=== PATIENT | male | born 1945 | race Caucasian/White ===

== ENCOUNTER 2016-10-20 10:17 | Outpatient (RCR) | payer OTHER ==
--- OUTSIDE RECORDS SUMMARY | 2016-10-13 08:55 | XMS REPORT | Continuity of Care Document ---
Author Author [facility] Organization [facility] Address Unknown Phone Unavailable Care Team Providers Care Inflatable Buildings Laminator Name Role Phone Unverified, Unverified PCP Unavailable Source Comments Some departments are not documenting in the electronic medical record. If you do not see the information that you expected, contact Release of Information in the Health Information Management department at [phone] for further assistance in locating additional records.[facility] Active Allergies and Adverse Reactions Not on File Current Medications Not on file Active Problems Not on file Social History Tobacco Use Types Packs/Day Years Used Date Never Assessed Plan of Care Health Maintenance Due Date Last Done Comments Physical (Comprehensive) 1953 Exam Pertussis Vaccine 1957 Tetanus Vaccine 1963 Breast Cancer Screening 1986 Colorectal Cancer 1996 Screening Shingles Vaccine 2006 Osteoporosis Screening 2011 Prevnar/Pneumovax (#1) 2011 Influenza Vaccine 07/15/2016 Results from Last 3 Months Not on file
[2016-10-13 09:06] LABS: BASOPHILS % (AUTO) 0 % (0-10); EOSINOPHILS % (AUTO) 1 % (0-10); LYMPHOCYTES % (AUTO) 24 % (12-44); MEAN CORPUSCULAR HEMOGLOBIN 31 PG (25-34); MEAN CORPUSCULAR HGB CONC 33 G/DL (32-36); MEAN CORPUSCULAR VOLUME 93 FL (80-99); MEAN PLATELET VOLUME 11.7 FL (7.4-10.4); MONOCYTES # (AUTO) 0.5 X 10^3 (0.0-1.0); MONOCYTES % (AUTO) 11 % (0-12); NEUTROPHILS # (AUTO) 2.6 X 10^3 (1.8-7.8); NEUTROPHILS % (AUTO) 64 % (42-75); PLATELET COUNT 203 10^3/uL (130-400); RED BLOOD COUNT 4.13 10^6/uL (4.35-5.85); RED CELL DISTRIBUTION WIDTH 13.9 % (10.0-14.5)
[2016-10-13 09:08] LABS: PEP REPORT SEE PATH REPORT
[2016-10-13 09:30] LABS: ALANINE AMINOTRANSFERASE 18 U/L (0-55); ALBUMIN 4.4 G/DL (3.2-4.5); ANION GAP 8 MMOL/L (5-14); ASPARTATE AMINO TRANSFERASE 19 U/L (5-34); BILIRUBIN,TOTAL 0.6 MG/DL (0.1-1.0); BLOOD UREA NITROGEN 12 MG/DL (7-18); BUN/CREATININE RATIO 13; CALCIUM 9.1 MG/DL (8.5-10.1); CARBON DIOXIDE 26 MMOL/L (21-32); CHLORIDE 104 MMOL/L (98-107); CREATININE SERUM 0.89 MG/DL (0.60-1.30); GFR ESTIMATED > 60; GLUCOSE 96 MG/DL (70-105); LACTATE DEHYDROGENASE 117 U/L (125-220); POTASSIUM 3.9 MMOL/L (3.6-5.0); SODIUM 138 MMOL/L (135-145)
[2016-10-14 01:56] LABS: IMMUNOGLOBULIN IGA 119 mg/dL (71-263); IMMUNOGLOBULIN IGG 994 mg/dL (672-1680); LIGHT CHAIN KAPPA SERUM QUANT 20.96 mg/L (3.30-19.40); LIGHT CHAIN LAMBDA SERUM QUANT 24.17 mg/L (5.71-26.30)
[2016-10-14 06:32] LABS: IMMUNOGLOBULIN IGM 1092 mg/dL (47-209)
[2016-10-17 10:41] LABS: CLIN PATHOLOGY REPORT FOOTNOTE; URINE IMMUNOFIXATION W/ INTERP Complete
[2016-10-17 10:43] LABS: SERUM PROTEIN ELEC DETAIL L-16-0015142
[~2016-10-20 10:17] MED LIST: ASP81TEC PO; CYAN10007 PO; ERGO400C PO; FINA1TAB PO; GLUC-113 PO; HYDR1CAP2 PO; MULT-608 PO; OMEG1CAP51 PO; ROSU5TAB PO; [UNRECOGNIZED DRUG - REMARK]
== END 2017-01-11 | disposition home or self-care (01) ==
LOC: ONC 10:17
PROVIDERS: ATTEND Internal Medicine Hematology & Oncology
DX: D47.2 Monoclonal gammopathy (principal); Z79.899 Other long term (current) drug therapy
CPT/HCPCS: 36415; 80053; 82232; 82784; 83615; 83883; 84155; 84156; 84165; 85025; 85045; 86335; 99213

== ENCOUNTER 2017-05-20 08:22 | Outpatient (RCR) | payer BC, OTHER ==
[2017-02-21 09:06] LABS: BASOPHILS % (AUTO) 0 % (0-10); EOSINOPHILS % (AUTO) 1 % (0-10); LYMPHOCYTES % (AUTO) 25 % (12-44); MEAN CORPUSCULAR HEMOGLOBIN 31 PG (25-34); MEAN CORPUSCULAR HGB CONC 33 G/DL (32-36); MEAN CORPUSCULAR VOLUME 94 FL (80-99); MEAN PLATELET VOLUME 12.1 FL (7.4-10.4); MONOCYTES # (AUTO) 0.5 X 10^3 (0.0-1.0); MONOCYTES % (AUTO) 14 % (0-12); NEUTROPHILS # (AUTO) 2.4 X 10^3 (1.8-7.8); NEUTROPHILS % (AUTO) 60 % (42-75); PLATELET COUNT 182 10^3/uL (130-400); RED BLOOD COUNT 4.03 10^6/uL (4.35-5.85); RED CELL DISTRIBUTION WIDTH 14.1 % (10.0-14.5)
[2017-02-21 09:33] LABS: PEP REPORT SEE PATH REPORT
[2017-02-21 09:55] LABS: ALANINE AMINOTRANSFERASE 17 U/L (0-55); ALBUMIN 3.9 G/DL (3.2-4.5); ANION GAP 6 MMOL/L (5-14); ASPARTATE AMINO TRANSFERASE 18 U/L (5-34); BILIRUBIN,TOTAL 0.5 MG/DL (0.1-1.0); BLOOD UREA NITROGEN 17 MG/DL (7-18); BUN/CREATININE RATIO 17; CALCIUM 9.2 MG/DL (8.5-10.1); CARBON DIOXIDE 29 MMOL/L (21-32); CHLORIDE 106 MMOL/L (98-107); CREATININE SERUM 1.01 MG/DL (0.60-1.30); GFR ESTIMATED > 60; GLUCOSE 100 MG/DL (70-105); LACTATE DEHYDROGENASE 136 U/L (125-220); POTASSIUM 4.7 MMOL/L (3.6-5.0); SODIUM 141 MMOL/L (135-145); TOTAL PROTEIN 6.8 G/DL (6.4-8.2)
[2017-02-22 04:01] LABS: IMMUNOGLOBULIN IGA 115 mg/dL (71-263); IMMUNOGLOBULIN IGG 934 mg/dL (672-1680); LIGHT CHAIN KAPPA SERUM QUANT 22.22 mg/L (3.30-19.40); LIGHT CHAIN LAMBDA SERUM QUANT 25.07 mg/L (5.71-26.30)
[2017-02-22 07:31] LABS: IMMUNOGLOBULIN IGM 1006 mg/dL (47-209)
[2017-02-24 06:59] LABS: CLIN PATHOLOGY REPORT FOOTNOTE; SERUM PROTEIN ELEC DETAIL L-17-0004696
[2017-05-18 09:21] LABS: BASOPHILS % (AUTO) 0 % (0-10); EOSINOPHILS # (AUTO) 0.1 10^3/uL (0.0-0.3); EOSINOPHILS % (AUTO) 1 % (0-10); LYMPHOCYTES # (AUTO) 1.1 X 10^3 (1.0-4.0); LYMPHOCYTES % (AUTO) 23 % (12-44); MEAN CORPUSCULAR HGB CONC 33 G/DL (32-36); MEAN CORPUSCULAR VOLUME 92 FL (80-99); MEAN PLATELET VOLUME 11.4 FL (7.4-10.4); MONOCYTES # (AUTO) 0.6 X 10^3 (0.0-1.0); MONOCYTES % (AUTO) 14 % (0-12); NEUTROPHILS # (AUTO) 2.9 X 10^3 (1.8-7.8); NEUTROPHILS % (AUTO) 62 % (42-75); PLATELET COUNT 217 10^3/uL (130-400); WHITE BLOOD COUNT 4.7 10^3/uL (4.3-11.0)
[2017-05-18 09:25] LABS: PEP REPORT SEE PATH REPORT
[2017-05-18 09:31] LABS: MEAN CORPUSCULAR HEMOGLOBIN 30 PG (25-34)
[2017-05-18 09:48] LABS: ALANINE AMINOTRANSFERASE 20 U/L (0-55); ALBUMIN 4.2 GM/DL (3.2-4.5); ANION GAP 7 MMOL/L (5-14); ASPARTATE AMINO TRANSFERASE 19 U/L (5-34); BILIRUBIN,TOTAL 0.7 MG/DL (0.1-1.0); BLOOD UREA NITROGEN 14 MG/DL (7-18); BUN/CREATININE RATIO 16; CALCIUM 9.6 MG/DL (8.5-10.1); CARBON DIOXIDE 28 MMOL/L (21-32); CHLORIDE 104 MMOL/L (98-107); CREATININE SERUM 0.89 MG/DL (0.60-1.30); GFR ESTIMATED > 60; GLUCOSE 99 MG/DL (70-105); POTASSIUM 4.6 MMOL/L (3.6-5.0); SODIUM 139 MMOL/L (135-145); TOTAL PROTEIN 7.4 GM/DL (6.4-8.2)
[2017-05-18 10:11] LABS: LACTATE DEHYDROGENASE 118 U/L (125-220)
[2017-05-19 03:28] LABS: IMMUNOGLOBULIN IGA 113 mg/dL (71-263); IMMUNOGLOBULIN IGG 958 mg/dL (672-1680)
[2017-05-19 07:32] LABS: IMMUNOGLOBULIN IGM 1038 mg/dL (47-209)
[2017-05-20 09:44] LABS: CLIN PATHOLOGY REPORT FOOTNOTE; SERUM PROTEIN ELEC DETAIL L-17-0008665
== END 2017-05-22 | disposition home or self-care (01) ==
LOC: ONC 08:22
PROVIDERS: ATTEND Internal Medicine Hematology & Oncology
DX: D47.2 Monoclonal gammopathy (principal); Z79.899 Other long term (current) drug therapy
CPT/HCPCS: 36415; 80053; 82784; 83615; 83883; 84155; 84156; 84165; 85025; 86335; 99213

== ENCOUNTER 2017-06-09 09:26 | Outpatient (RCR) | payer BC | END 2017-08-13 | disposition home or self-care (01) | LOC: EEVIPCON 09:26 → ONC 09:26 | PROVIDERS: ATTEND Internal Medicine Hematology & Oncology | DX: D47.2 Monoclonal gammopathy (principal); Z79.899 Other long term (current) drug therapy | CPT/HCPCS: 99213 ==

== ENCOUNTER 2017-10-19 08:35 | Outpatient (RCR) | payer BC ==
[2017-10-19 09:00] LABS: PEP REPORT SEE PATH REPORT
[2017-10-19 09:01] LABS: BASOPHILS % (AUTO) 0 % (0-10); EOSINOPHILS % (AUTO) 1 % (0-10); LYMPHOCYTES % (AUTO) 18 % (12-44); MEAN CORPUSCULAR HEMOGLOBIN 31 PG (25-34); MEAN CORPUSCULAR HGB CONC 33 G/DL (32-36); MEAN CORPUSCULAR VOLUME 93 FL (80-99); MEAN PLATELET VOLUME 11.7 FL (7.4-10.4); MONOCYTES # (AUTO) 0.6 X 10^3 (0.0-1.0); MONOCYTES % (AUTO) 11 % (0-12); NEUTROPHILS # (AUTO) 3.8 X 10^3 (1.8-7.8); NEUTROPHILS % (AUTO) 71 % (42-75); PLATELET COUNT 207 10^3/uL (130-400); RED BLOOD COUNT 4.19 10^6/uL (4.35-5.85); RED CELL DISTRIBUTION WIDTH 14.3 % (10.0-14.5); WHITE BLOOD COUNT 5.3 10^3/uL (4.3-11.0)
[2017-10-19 09:27] LABS: ALANINE AMINOTRANSFERASE 20 U/L (0-55); ALBUMIN 4.1 GM/DL (3.2-4.5); ANION GAP 5 MMOL/L (5-14); ASPARTATE AMINO TRANSFERASE 25 U/L (5-34); BILIRUBIN,TOTAL 0.7 MG/DL (0.1-1.0); BLOOD UREA NITROGEN 15 MG/DL (7-18); BUN/CREATININE RATIO 16; CALCIUM 9.4 MG/DL (8.5-10.1); CARBON DIOXIDE 31 MMOL/L (21-32); CHLORIDE 104 MMOL/L (98-107); CREATININE SERUM 0.92 MG/DL (0.60-1.30); GFR ESTIMATED > 60; GLUCOSE 99 MG/DL (70-105); LACTATE DEHYDROGENASE 131 U/L (125-220); POTASSIUM 4.5 MMOL/L (3.6-5.0); SODIUM 140 MMOL/L (135-145); TOTAL PROTEIN 7.5 GM/DL (6.4-8.2)
[2017-10-20 03:58] LABS: LIGHT CHAIN KAPPA SERUM QUANT 18.83 mg/L (3.30-19.40); LIGHT CHAIN LAMBDA SERUM QUANT 27.76 mg/L (5.71-26.30)
[2017-10-20 06:31] LABS: IMMUNOGLOBULIN IGA 123 mg/dL (71-263); IMMUNOGLOBULIN IGG 934 mg/dL (672-1680)
[2017-10-20 07:52] LABS: IMMUNOGLOBULIN IGM 996 mg/dL (47-209)
== END 2017-11-03 09:11 | disposition home or self-care (01) ==
LOC: ONC 08:35
PROVIDERS: ATTEND Internal Medicine Hematology & Oncology
DX: D47.2 Monoclonal gammopathy (principal); Z79.899 Other long term (current) drug therapy
CPT/HCPCS: 36415; 80053; 82784; 83615; 83883; 84155; 84165; 85025

== ENCOUNTER 2017-11-03 09:13 | Outpatient (RCR) | payer BC ==
[2018-01-27] MEDS ORDERED: ROSU5TAB PO (12:56)
[2018-01-27] MEDS ORDERED: MULT-35 PO (12:56)
[2018-01-27] MEDS ORDERED: FINA1TAB16 PO (12:56)
[2018-01-27] MEDS ORDERED: ASPI-999 PO (12:56)
[2018-01-27] MEDS ORDERED: CYAN10006 PO (12:56)
== END 2018-02-01 | disposition home or self-care (01) ==
LOC: ONC 09:13
PROVIDERS: ATTEND Internal Medicine Hematology & Oncology
DX: D47.2 Monoclonal gammopathy (principal); Z79.899 Other long term (current) drug therapy
CPT/HCPCS: 99213

== ENCOUNTER 2018-01-27 05:40 | Outpatient (CLI) | payer BC ==
[~2018-01-27] VITALS: Ht 177.8 cm; Wt 68.5 kg
[2018-01-27] MEDS ORDERED: ROSU5TAB PO (12:56)
[2018-01-27] MEDS ORDERED: CYAN10006 PO (12:56)
[2018-01-27] MEDS ORDERED: FINA1TAB16 PO (12:56)
[2018-01-27] MEDS ORDERED: ASPI-999 PO (12:56)
[2018-01-27] MEDS ORDERED: MULT-35 PO (12:56)
== END 2018-01-27 13:03 ==
LOC: PREOP 05:40
PROVIDERS: ATTEND Internal Medicine
DX: Z01.818 Encounter for other preprocedural examination (principal); Z12.11 Encounter for screening for malignant neoplasm of colon

== ENCOUNTER 2018-02-03 07:37 | Day surgery (SDC) | payer BC ==
--- NOTE | 2018-01-17 06:09 | HISTORY AND PHYSICAL ---
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 He rescheduled this procedure out of a 1 month interval on the 03 of February. This is an addendum H and P. He reports that there have been no changes. He continues to exercise on a regular basis and feels well. Pt was seen on 01/09/18. PHYSICAL EXAMINATION: VITAL SIGNS: Blood pressure was 104/76, heart rate 72 and regular. CHEST: Clear. CARDIOVASCULAR: Reveals regular rate and rhythm without murmur, S3 or S4. EXTREMITIES: Reveal no cyanosis, clubbing or edema. ASSESSMENT: The patient is set up for screening colonoscopy on 02/03, deemed to be of average risk with no contraindications to proceeding with planned procedure. Job ID: [id number] DocumentID: [id number] Dictated Date: 01/10/2018 11:41:30 Medical Billing Manager Date: 01/10/2018 12:23:44 Dictated By: NGHIA VARGAS MD MTDD
[~2018-02-03] VITALS: Ht 177.8 cm; Wt 68.5 kg
[~2018-02-03 07:37] MED LIST changes: +ASPI-999 PO; +CYAN10006 PO; +FINA1TAB16 PO; +MULT-35 PO
[2018-02-03 07:50] VITALS: BP 124/84
[2018-02-03] MEDS ORDERED: 1/2 NS IV SOLUTION 1,000 ML IV ONE (08:05)
[2018-02-03] MEDS ORDERED: 1/2 NS IV SOLUTION 1,000 ML IV PRN (08:15)
[2018-02-03] MEDS ORDERED: MIDAZOLAM 2 MG/2 ML (VERSED) VIAL IVP PRN (08:15)
[2018-02-03] MEDS ORDERED: LIDOCAINE JELLY 2% (XYLOCAINE) 5 ML TUBE MM PRN (08:15)
[2018-02-03] MEDS ORDERED: fentaNYL INJECTION 100 MCG/2 ML AMP ONE ×2 (08:53→08:54)
[2018-02-03] MEDS ORDERED: LIDOCAINE JELLY 2% (XYLOCAINE) 5 ML TUBE ONE (08:53)
[2018-02-03] MEDS ORDERED: MIDAZOLAM 2 MG/2 ML (VERSED) VIAL ONE (08:59)
[2018-02-03] MEDS: fentaNYL INJECTION 100 MCG/2 ML AMP IVP PRN ×2 (09:00→09:10)
--- NOTE | 2018-02-03 10:12 | Pre-Op Note & Conscious Sedat ---
Pre-Operative Progress Note H&P Reviewed The H&P was reviewed, patient examined and no changes noted. Date H&P Reviewed: Feb 03, 2018 Time H&P Reviewed: 07:55 Conscious Sedation Pre-Proced ASA Class: 2 Airway Mallampati Classification: ([place] appropriate class) I. II. III, IV Lungs Heart ASA score ASA 1: a normal healthy patient ASA 2: a patient with a mild systemic disease (mid diabetes, controlled hypertension, obesity ASA 3: a patient with a severe systemic disease that limits activity (angina , COPD, prior Myocardial infarction) ASA 4: a patient with an incapacitating disease that is a constant threat to life (CHF, renal failure) ASA 5: a moribund patient not expected to survive 24 hrs. (ruptured aneurysm) ASA 6: a declared brain patient whose organs are being harvested. For emergent operations, add the letter E after the classification Grade 2 Sedation Plan: Analgesia, Amnesia, Plan communicated to team members, Discussed options with patient/fam, Discussed risks with patient/fam Note The patient is an appropriate candidate to undergo the planned procedure, sedation, and anesthesia. The patient immediately re-assessed prior to indication. NGHIA VARGAS MD Feb 03, 2018 10:12
[2018-02-03 10:20] VITALS: BP 148/72
[2018-02-03 10:38] VITALS: BP 142/75
[2018-02-03 10:40] VITALS: BP 142/75
--- NOTE | 2018-02-03 15:24 | OPERATIVE REPORT ---
DATE OF SERVICE: COLONOSCOPY SUMMARY PRIMARY CARE PROVIDER: Nghia Vargas MD. The patient was set up for screening colonoscopy. The patient was placed in the left lateral decubitus position. Prior to doing colonoscopy, digital rectal evaluation was performed. Anal sphincter tone was normal and the perianal reflex was intact. The prostate is mildly enlarged, anodular and nontender digital inspection. No other abnormalities were noted on digital inspection of the anal canal or distal rectal vault. The colonoscope was then inserted into the rectum under direct visualization and then advanced to the cecum. The cecum was identified by identification of the ileocecal valve and cecal strap. Photographic documentation was obtained. A careful inspection was made as the colonoscope was withdrawn. FINDINGS: There is no evidence for internal or external hemorrhoids. The rectum was unremarkable. Present in the rectosigmoid junction was a diminutive hyperplastic appearing polyp that was photographed and biopsied and ablated with no subsequent blood loss. Similar polyps were noted in the distal sigmoid colon 20 cm from the anal verge and splenic flexure. Both were removed via hot forceps with cauterization and no subsequent blood loss. No evidence for diverticular disease was noted. The transverse colon, hepatic flexure, ascending colon and cecum were unremarkable as was the ileocecal valve. ASSESSMENT: Three diminutive polyps were removed as noted above via hot forceps with no subsequent blood loss. This was an otherwise normal colonoscopy to the cecum. As long as there are no surprises on histopathology report, I would advocate consideration for repeat screening colonoscopy in 10 years pending health status at that time. Digital evaluation of the prostate was compatible with mild benign hypertrophy. Job ID: [id number] DocumentID: [id number] Dictated Date: 02/03/2018 10:25:12 Belt Back Operator Date: 02/03/2018 14:27:02 Dictated By: NGHIA VARGAS MD [facility]
== END 2018-02-03 10:42 | disposition home or self-care (01) ==
LOC: ENDO 07:37
PROVIDERS: ATTEND Internal Medicine
DX: Z12.11 Encounter for screening for malignant neoplasm of colon (principal); D12.3 Benign neoplasm of transverse colon; D12.5 Benign neoplasm of sigmoid colon; D12.7 Benign neoplasm of rectosigmoid junction; D47.2 Monoclonal gammopathy; E78.5 Hyperlipidemia, unspecified

== ENCOUNTER 2018-05-04 09:40 | Outpatient (RCR) | payer BC ==
[2018-04-19 09:57] LABS: BASOPHILS % (AUTO) 0 % (0-10); EOSINOPHILS % (AUTO) 1 % (0-10); HEMATOCRIT 38 % (40-54); HEMOGLOBIN 12.9 G/DL (13.3-17.7); LYMPHOCYTES % (AUTO) 22 % (12-44); MEAN CORPUSCULAR HEMOGLOBIN 32 PG (25-34); MEAN CORPUSCULAR HGB CONC 34 G/DL (32-36); MEAN CORPUSCULAR VOLUME 92 FL (80-99); MONOCYTES # (AUTO) 0.6 X 10^3 (0.0-1.0); MONOCYTES % (AUTO) 12 % (0-12); NEUTROPHILS # (AUTO) 3.2 X 10^3 (1.8-7.8); NEUTROPHILS % (AUTO) 65 % (42-75); PLATELET COUNT 188 10^3/uL (130-400); RED BLOOD COUNT 4.09 10^6/uL (4.35-5.85); RED CELL DISTRIBUTION WIDTH 14.2 % (10.0-14.5); WHITE BLOOD COUNT 4.8 10^3/uL (4.3-11.0)
[2018-04-19 10:18] LABS: ALANINE AMINOTRANSFERASE 20 U/L (0-55); ALBUMIN 4.1 GM/DL (3.2-4.5); ALKALINE PHOSPHATASE 40 U/L (40-136); BILIRUBIN,TOTAL 0.7 MG/DL (0.1-1.0); BUN/CREATININE RATIO 21; CALCIUM 9.4 MG/DL (8.5-10.1); CARBON DIOXIDE 27 MMOL/L (21-32); CHLORIDE 106 MMOL/L (98-107); CREATININE SERUM 0.85 MG/DL (0.60-1.30); GFR ESTIMATED > 60; GLUCOSE 87 MG/DL (70-105); POTASSIUM 4.5 MMOL/L (3.6-5.0); SODIUM 139 MMOL/L (135-145); TOTAL PROTEIN 7.1 GM/DL (6.4-8.2)
== END 2018-07-18 | disposition home or self-care (01) ==
LOC: ONC 09:40
PROVIDERS: ATTEND Internal Medicine Hematology & Oncology
DX: D47.2 Monoclonal gammopathy (principal); Z79.899 Other long term (current) drug therapy
CPT/HCPCS: 36415; 80053; 82784; 83883; 84155; 84165; 85025; 99213

== ENCOUNTER → 2019-10-31 | Outpatient (CLI) | payer BC ==
[~2019-10-31] MED LIST changes: +CYAN-41 PO; -CYAN10006 PO
== END ==
LOC: CARD 14:50
PROVIDERS: ATTEND Internal Medicine
DX: I49.9 Cardiac arrhythmia, unspecified (principal)
CPT/HCPCS: 93005

== ENCOUNTER → 2019-11-22 | Outpatient (CLI) | payer BC ==
[~2019-11-22] MED LIST changes: +AMIO200T4 PO; +APIX5TAB PO; +CHOL200059 PO; +MULT1TAB69 PO
== END ==
LOC: CARD 13:02
PROVIDERS: ATTEND Internal Medicine
DX: I48.91 Unspecified atrial fibrillation (principal); I51.7 Cardiomegaly
CPT/HCPCS: 93306

== ENCOUNTER → 2019-12-05 | Outpatient (CLI) | payer BC ==
[2019-12-05] VITALS (8 sets, daily range): BP systolic 106–132; BP diastolic 62–97
[~2019-12-05] VITALS: Ht 178 cm; Wt 71.0 kg
[~2019-12-05] MED LIST changes: +ENOXAPARIN 100 MG/1 ML (LOVENOX) SYR ONE; +ENOXAPARIN 80 MG/0.8 ML (LOVENOX) SYR SC ONE; +LIDOCAINE 2% VISCOUS 15 ML UDC ONE; +LIDOCAINE 2% VISCOUS 15 ML UDC PO ONE; +MIDAZOLAM 5 MG/5 ML (VERSED) VIAL IV ONE; +MIDAZOLAM 5 MG/5 ML (VERSED) VIAL ONE; -MULT1TAB69 PO; +NS IV 1000 ML 1,000 ML IV ONE; +NS IV 1000 ML 1,000 ML ONE; +REGADENOSON 0.4 MG/5 ML SYR (LEXISCAN) IV ONE; +meTOprolol 5 MG/5 ML (LOPRESSOR) VIAL IV ONE; +meTOprolol 5 MG/5 ML (LOPRESSOR) VIAL ONE; +proPOfol 200 MG/20 ML (DIPRIVAN) VIAL IV ONE
[2019-12-05] MEDS: CATHETER FLUSH 10 ML SYR IV PRN ×2 (12:15→12:25)
[2019-12-05 15:02] LABS: HEMOGLOBIN 14.3 G/DL (13.3-17.7); MEAN PLATELET VOLUME 12.6 FL (7.4-10.4); RED CELL DISTRIBUTION WIDTH 14.3 % (10.0-14.5); WHITE BLOOD COUNT 5.7 10^3/uL (4.3-11.0)
[2019-12-05 15:07] LABS: INR 1.1 (0.8-1.4); PROTHROMBIN TIME PATIENT 14.7 SEC (12.2-14.7)
[2019-12-05 15:13] LABS: ALANINE AMINOTRANSFERASE 24 U/L (0-55); ALBUMIN 4.6 GM/DL (3.2-4.5); ALKALINE PHOSPHATASE 51 U/L (40-136); BILIRUBIN,TOTAL 0.7 MG/DL (0.1-1.0); BUN/CREATININE RATIO 12; CALCIUM 10.1 MG/DL (8.5-10.1); CARBON DIOXIDE 26 MMOL/L (21-32); CHLORIDE 103 MMOL/L (98-107); CHOLESTEROL 138 MG/DL (< 200); CREATININE SERUM 1.05 MG/DL (0.60-1.30); GFR ESTIMATED > 60; GLUCOSE 102 MG/DL (70-105); HDL CHOLESTEROL 61 MG/DL (40-60); SODIUM 140 MMOL/L (135-145); TOTAL PROTEIN 7.9 GM/DL (6.4-8.2); TRIGLYCERIDES 41 MG/DL (<150); VLDL CHOLESTEROL 8 MG/DL (5-40)
--- NOTE | 2019-12-05 16:13 | NUR ---
propofol given per anesthesia. see anesthesia record.
--- NOTE | 2019-12-05 16:16 | Cardiac Procedure Note-CS/ASA ---
Pre-Procedure Note Pre-Op Procedure Note H&P Reviewed The H&P was reviewed, patient examined and no changes noted. Date H&P Reviewed: Dec 05, 2019 Time H&P Reviewed: 15:00 Conscious Sedation Pre-Proced Time 15:00 ASA Score 2 For ASA 3 and 4: Consider anesthesia and medical clearance. Also, for patients with a history of failed moderate sedation consider anesthesia. Airway Lungs Heart ASA score ASA 1: a normal healthy patient ASA 2: a patient with a mild systemic disease (mid diabetes, controlled hypertension, obesity x ASA 3: a patient with a severe systemic disease that limits activity (angina, COPD, prior Myocardial infarction) ASA 4: a patient with an incapacitating disease that is a constant threat to life (CHF, renal failure) ASA 5: a moribund patient not expected to survive 24 hrs. (ruptured aneurysm) ASA 6: a declared brain- patient whose organs are being harvested. For emergent operations, add the letter E after the classification Mallampati Classification Grade 3 Sedation Plan Analgesia, Amnesia, Plan communicated to team members, Discussed options with patient/fam, Discussed risks with patient/fam The patient is an appropriate candidate to undergo the planned procedure, sedation, and anesthesia. The patient immediately re-assessed prior to indication. JASON FERRELL MD Dec 05, 2019 4:16 pm
--- NOTE | 2019-12-05 16:18 | Cardioversion ---
Cardioversion PROCEDURE PHYSICIAN: Jason Francois DATE OF PROCEDURE: 12/05/19 DIRECT EXTERNAL ELECTRICAL CARDIOVERSION: Indications: Atrial Fibrillation with rapid ventricular rate Preoperative diagnoses: Atrial Fibrillation with rapid ventricular rate Postoperative diagnosis: Sinus rhythm, Successful Electrical Cardioversion History: Anesthesia: By Anesthesia services Complications: None Specimen: None Contrast: 0 Flouroscopy: none Procedure Details: The patient was brought the factory laborer after informed consent was taken, all the risks and complications were explained including the risk of stroke. Electrical cardioversion was carried out with anesthesia support with propofol. 200 joules of synchronized shock was delivered through external patches which promptly restored sinus rhythm, patient return to atrial fibrillation within a few seconds, he was loaded with 5 mg of IV Lopressor and a second then a third attempt was done and was successful in terminating atrial fibrillation for a few seconds then he returned to atrial fibrillation. Conclusions: Electrical cardioversion was done, patient did not maintain sinus rhythm for a long time after the procedure, went back to atrial fibrillation within a few seconds Patient will be loaded with amiodarone and we will attempt electrical cardioversion without JANETTE next week Final Diagnosis: Atrial fibrillation Tachycardia JASON FRANCOIS MD Dec 05, 2019 4:18 pm
--- NOTE | 2019-12-05 19:36 | STRESS TEST ---
DATE OF SERVICE: 12/05/2019 EXERCISE THEN LEXISCAN MYOVIEW STRESS TEST REPORT REFERRING PHYSICIAN: Dr. Monroy. Baseline heart rate is 110. Baseline blood pressure 136/92. Baseline EKG is atrial fibrillation with no ischemic changes. In summary, the patient was injected with 10.57 mCi of technetium-99 Myoview and the resting images were obtained. Then, the patient started exercising with a baseline heart rate, blood pressure and EKG mentioned above. Within 2 minutes of exercise, heart rate was 146, which is 99% of maximum expected heart rate. Test was terminated and after recovery, I proceeded with Lexiscan injection of 0.4 mg, followed by 32.3 mCi of technetium-99 Myoview. The resting and stress images were reviewed and compared in the short axis, horizontal long axis, and vertical long axis views. Review of the images showed good radiotracer uptake with no ischemia or infarction on SPECT images. SSS is 1, SDS 1, TID value 1.08. On the gated images, the left ventricle appeared to be normal size with normal contractility. Calculated ejection fraction 52%. Baseline atrial fibrillation affecting the quality of the gated images. CONCLUSION: 1. Poor exercise tolerance, a total of 2 minutes on standard Moy protocol, achieving 99% of maximum expected heart rate. 2. Baseline atrial fibrillation persisted throughout test. 3. No significant ischemia or infarction on SPECT images. 4. The patient tolerated Lexiscan well. 5. Normal left ventricular size with normal contractility. Calculated ejection fraction 52%, gated images are unreliable due to underlying atrial fibrillation. Job ID: [id number] DocumentID: [id number] Dictated Date: 12/05/2019 15:15:40 Postal Support Employee Date: 12/05/2019 19:36:18 Dictated By: JASON FERRELL MD
--- NOTE | 2019-12-06 14:29 | Anesthesia-General Post-Op ---
MAC Patient Condition Mental Status/LOC: Same as Preop Cardiovascular: Satisfactory Nausea/Vomiting: Absent Respiratory: Satisfactory Pain: Controlled Complications: Absent Post Op Complications Complications None Follow Up Care/Instructions Patient Instructions None needed. Anesthesiology Discharge Order Discharge Order Late entry from 1600 12/05/18: Patient is doing well, no complaints, stable vital signs, no apparent adverse anesthesia problems. No complications reported per nursing. WES DYSON CRNA Dec 06, 2019 14:29
== END ==
LOC: CARD 12:07
PROVIDERS: ATTEND Internal Medicine Cardiovascular Disease
DX: I48.91 Unspecified atrial fibrillation (principal)
CPT/HCPCS: 36415; 78452; 80053; 80061; 85027; 85610; 85730; 92960; 93005; 93017; 93312; 93320; 93325

== ENCOUNTER 2019-12-12 06:46 | Day surgery (SDC) | payer BC ==
[2019-12-12] VITALS (9 sets, daily range): BP systolic 111–136; BP diastolic 71–96
[~2019-12-12] VITALS: Ht 177.8 cm; Wt 70.4 kg
[~2019-12-12 06:46] MED LIST changes: -ENOXAPARIN 100 MG/1 ML (LOVENOX) SYR ONE; -ENOXAPARIN 80 MG/0.8 ML (LOVENOX) SYR SC ONE; -LIDOCAINE 2% VISCOUS 15 ML UDC ONE; -LIDOCAINE 2% VISCOUS 15 ML UDC PO ONE; -MIDAZOLAM 5 MG/5 ML (VERSED) VIAL IV ONE; -MIDAZOLAM 5 MG/5 ML (VERSED) VIAL ONE; -NS IV 1000 ML 1,000 ML IV ONE; -NS IV 1000 ML 1,000 ML ONE; -REGADENOSON 0.4 MG/5 ML SYR (LEXISCAN) IV ONE; -meTOprolol 5 MG/5 ML (LOPRESSOR) VIAL IV ONE; -meTOprolol 5 MG/5 ML (LOPRESSOR) VIAL ONE; -proPOfol 200 MG/20 ML (DIPRIVAN) VIAL IV ONE
[2019-12-12] MEDS ORDERED: NS IV 1000 ML 1,000 ML IV ONE (07:10)
[2019-12-12] MEDS ORDERED: NS IV 1000 ML 1,000 ML IV SCH (07:11)
[2019-12-12] MEDS ORDERED: NS IV 1000 ML 1,000 ML ONE (07:16)
[2019-12-12 07:43] LABS: HEMOGLOBIN 13.4 G/DL (13.3-17.7); RED CELL DISTRIBUTION WIDTH 14.5 % (10.0-14.5); WHITE BLOOD COUNT 4.2 10^3/uL (4.3-11.0)
[2019-12-12] MEDS ORDERED: AMIODARONE (OMNICELL DRIP KIT) 150 MG/3 ML IV ONE (07:47)
[2019-12-12] MEDS ORDERED: proPOfol 200 MG/20 ML (DIPRIVAN) VIAL IV ONE (07:47)
[2019-12-12] MEDS ORDERED: MULT1TAB69 PO (07:53)
--- NOTE | 2019-12-12 07:56 | Diagnostic Imaging Report ---
EXAMINATION: Chest 1 view HISTORY: Atrial fibrillation COMPARISON: None available. FINDINGS: The lungs are clear without edema or pneumonia. No pleural effusion or pneumothorax. Heart size is normal. IMPRESSION: 1. Clear lungs. Dictated by: Dictated on workstation # [id number]
[2019-12-12] MEDS ORDERED: AMIO200T4 PO (07:59)
[2019-12-12] MEDS ORDERED: AMIODARONE FOR BOLUS 150 MG in D5W 100 ML IVPB 100 ML IV ONE (08:00)
[2019-12-12 08:06] LABS: INR 1.2 (0.8-1.4); PROTHROMBIN TIME PATIENT 15.3 SEC (12.2-14.7)
[2019-12-12 08:10] LABS: ALANINE AMINOTRANSFERASE 26 U/L (0-55); ALBUMIN 4.2 GM/DL (3.2-4.5); ALKALINE PHOSPHATASE 42 U/L (40-136); BILIRUBIN,TOTAL 0.6 MG/DL (0.1-1.0); BUN/CREATININE RATIO 15; CALCIUM 9.4 MG/DL (8.5-10.1); CARBON DIOXIDE 28 MMOL/L (21-32); CHLORIDE 104 MMOL/L (98-107); CHOLESTEROL 136 MG/DL (< 200); CREATININE SERUM 1.17 MG/DL (0.60-1.30); GFR ESTIMATED > 60; GLUCOSE 99 MG/DL (70-105); HDL CHOLESTEROL 59 MG/DL (40-60); POTASSIUM 4.4 MMOL/L (3.6-5.0); SODIUM 139 MMOL/L (135-145); TOTAL PROTEIN 7.2 GM/DL (6.4-8.2); TRIGLYCERIDES 38 MG/DL (<150); VLDL CHOLESTEROL 8 MG/DL (5-40)
--- NOTE | 2019-12-12 08:11 | Cardiac Procedure Note-CS/ASA ---
Pre-Procedure Note Pre-Op Procedure Note H&P Reviewed The H&P was reviewed, patient examined and no changes noted. Date H&P Reviewed: Dec 12, 2019 Time H&P Reviewed: 08:11 Conscious Sedation Pre-Proced Time 08:11 ASA Score 3 For ASA 3 and 4: Consider anesthesia and medical clearance. Also, for patients with a history of failed moderate sedation consider anesthesia. Airway Lungs Heart ASA score ASA 1: a normal healthy patient ASA 2: a patient with a mild systemic disease (mid diabetes, controlled hypertension, obesity x ASA 3: a patient with a severe systemic disease that limits activity (angina, COPD, prior Myocardial infarction) ASA 4: a patient with an incapacitating disease that is a constant threat to life (CHF, renal failure) ASA 5: a moribund patient not expected to survive 24 hrs. (ruptured aneurysm) ASA 6: a declared brain- patient whose organs are being harvested. For emergent operations, add the letter E after the classification Mallampati Classification Grade 3 Sedation Plan Analgesia, Amnesia, Plan communicated to team members, Discussed options with patient/fam, Discussed risks with patient/fam The patient is an appropriate candidate to undergo the planned procedure, sedation, and anesthesia. The patient immediately re-assessed prior to indication. JASON FERRELL MD Dec 12, 2019 08:11
--- NOTE | 2019-12-12 08:18 | Cardioversion ---
Cardioversion PROCEDURE PHYSICIAN: Jason Francois DATE OF PROCEDURE: 12/12/19 DIRECT EXTERNAL ELECTRICAL CARDIOVERSION: Indications: Atrial Fibrillation Preoperative diagnoses: Atrial Fibrillation Postoperative diagnosis: Sinus rhythm, Successful Electrical Cardioversion History: 74 years old gentleman with atrial fibrillation, failed to maintain sinus rhythm after JANETTE/ cardioversion last week, loaded with amiodarone and continued on Eliquis without interruption for a week, given additional IV dose of Amiodarone this morning Anesthesia: By Anesthesia services Complications: None Specimen: None Contrast: 0 Flouroscopy: none Procedure Details: The patient was brought the lab pack chemist after informed consent was taken, all the risks and complications were explained including the risk of stroke. Electrical cardioversion was carried out with anesthesia support with propofol. 200 joules of synchronized shock was delivered through external patches which promptly restored sinus rhythm. The patient tolerated the procedure well. Conclusions: Successful electrical cardioversion Final Diagnosis: Chronic persistent atrial fibrillation Chest pain JASON FRANCOIS MD Dec 12, 2019 08:18
--- NOTE | 2019-12-12 08:21 | Anesthesia-Procedure Note ---
Procedures/Interventions Procedure Start/Stop/Diagnosis Date of Procedure: Dec 12, 2019 Start Time: 08:08 Stop Time: 08:15 JANETTE/Cardioversion Anesthesia Type: mac ASA Class: 2 Medications propofol 50 mg iv Monitors and Equipment: BP Cuff - Left, Continuous EKG, End Tidal CO2, IV, Pulse Oximeter SHANTE VANN CRNA Dec 12, 2019 08:21
--- NOTE | 2019-12-12 09:20 | NUR ---
iv dc'd cath intact on removal, reviewed dc instructions with spouse present. has taken eliquis and amiodarone po as instructed. dc'd via wc
--- NOTE | 2019-12-12 09:30 | NUR ---
SPOKE WITH THE PT (HE WAS RECENTLY HERE IN THE [facility] ON 12-05-2019, HOWEVER I DID NOT INTERVIEW IN AT THAT TIME) AND CALLED [facility] TO COMPLETE THE MED REC. AMIODARONE 200MG: WHEN PT WAS SEEN ON 12-05 AN RX WAS SENT TO HIS PHARMACY WITH THE FOLLOWING DIRECTIONS " 2 TABS BID X 7 DAYS, THEN 1 TAB BID THEREAFTER". THE PT IS STILL ON THE FIRST WEEKS LOADING DOSE, SO THAT IS WHAT I DOCUMENTED IN THE MED REC WITH THE ABOVE DIRECTIONS LISTED IN THE RX NOTES. PT HAD MISSED SOME DOSES OF THE ABOVE MED AND WHEN I WAS IN THE HOLDING BAY WITH THE PT HE WAS DISCUSSING WITH DR. FERRELL ABOUT HOW HE SHOULD CONTINUE AFTER HIS PROCEDURE. THEREFORE THE DR IS AWARE OF THE MISSED THERAPY AND HAS ADVISED HIM ACCORDINGLY. THE FOLLOWING ARE FILL DATES: 11-16-2019 ROSUVASTATIN #30/30DS 11-26-2019 ELIQUIS #60/30DS 12-05-2019 AMIODARONE #74/30DS 12-06-2019 FINASTERIDE #90/90DS OTC MEDS: [facility]
== END 2019-12-12 09:25 | disposition home or self-care (01) ==
LOC: CATH 06:46
PROVIDERS: ATTEND Internal Medicine Cardiovascular Disease
DX: I48.19 Other persistent atrial fibrillation (principal); E78.5 Hyperlipidemia, unspecified; Z88.8 Allergy status to other drugs, medicaments and biological substances; Z79.02 Long term (current) use of antithrombotics/antiplatelets; Z79.899 Other long term (current) drug therapy; Z80.1 Family history of malignant neoplasm of trachea, bronchus and lung; Z83.3 Family history of diabetes mellitus
CPT/HCPCS: 36415; 71045; 80053; 80061; 85027; 85610; 85730; 87081; 92960; 93005

== ENCOUNTER 2020-06-02 10:55 | Outpatient (RCR) | payer BC ==
[2020-04-08 08:35] LABS: BASOPHILS % (AUTO) 0 % (0-10); EOSINOPHILS % (AUTO) 0 % (0-10); HEMATOCRIT 40 % (40-54); HEMOGLOBIN 13.3 G/DL (13.3-17.7); LYMPHOCYTES # (AUTO) 1.7 X 10^3 (1.0-4.0); LYMPHOCYTES % (AUTO) 17 % (12-44); MEAN CORPUSCULAR HEMOGLOBIN 31 PG (25-34); MEAN CORPUSCULAR HGB CONC 33 G/DL (32-36); MEAN CORPUSCULAR VOLUME 93 FL (80-99); MONOCYTES # (AUTO) 1.3 X 10^3 (0.0-1.0); MONOCYTES % (AUTO) 13 % (0-12); NEUTROPHILS # (AUTO) 6.8 X 10^3 (1.8-7.8); NEUTROPHILS % (AUTO) 70 % (42-75); PLATELET COUNT 222 10^3/uL (130-400); RED CELL DISTRIBUTION WIDTH 14.8 % (10.0-14.5); WHITE BLOOD COUNT 9.8 10^3/uL (4.3-11.0)
[2020-04-08 08:55] LABS: BILIRUBIN,TOTAL 0.7 MG/DL (0.1-1.0); CALCIUM 9.1 MG/DL (8.5-10.1); CREATININE SERUM 1.28 MG/DL (0.60-1.30); POTASSIUM 3.6 MMOL/L (3.6-5.0); TOTAL PROTEIN 7.2 GM/DL (6.4-8.2)
[~2020-06-02 10:55] MED LIST changes: +MULT-567 PO
== END 2020-07-07 | disposition home or self-care (01) ==
LOC: ONC 10:55
PROVIDERS: ATTEND Internal Medicine Hematology & Oncology
DX: D47.2 Monoclonal gammopathy (principal); Z79.899 Other long term (current) drug therapy
CPT/HCPCS: 80053; 82784; 83615; 83883; 84155; 84165; 85025; 99213

== ENCOUNTER → 2020-09-26 | Day surgery (SDC) | payer BC ==
[~2020-09-26] VITALS: Ht 177 cm; Wt 71.0 kg
[~2020-09-26] MED LIST changes: -AMIO200T4 PO; +AMIO200T6 PO; +LIDOCAINE 1% INJ 20 ML 20 ML VIAL INJ ONE; +LIDOCAINE 1% INJ 20 ML 20 ML VIAL ONE
[2020-09-26 08:26] VITALS: BP 116/69
--- NOTE | 2020-09-26 09:09 | Implantation of Loop Monitor ---
Implant of Loop Monitior IMPLANTATION OF LOOP MONITOR REPORT DATE OF PROCEDURE: 09/26/20 PREOP DIAGNOSIS: Paroxysmal atrial fibrillation PROCEDURE DETAILS: The patient is a 75 male with history of paroxysmal atrial fibrillation had ablation, has been having recurrent palpitation requiring long-term surveillance. Therefore implantable loop recorder was discussed and agreed with the patient. Informed consent was taken. All risks and complications were discussed at length. The patient was draped and prepped in the usual sterile fashion. Local anesthesia was lidocaine, which was given in the substernal area close to the 4th intercostal space. Loop monitor [employer] with serial number [id number] was implanted according to the protocol. Steri-Strips were placed at the end of the procedure. There were no complications and the patient tolerated the procedure well. ANESTHESIA: Local anesthesia with lidocaine. COMPLICATIONS: None CONTRAST/FLUOROSCOPY: None CONCLUSION: Successful implantation of Loop monitor with no complication FINAL DIAGNOSIS: Paroxysmal atrial fibrillation Palpitation JASON FERRELL MD Sep 26, 2020 9:09 am
== END ==
LOC: CATH 09:00
PROVIDERS: ATTEND Internal Medicine Cardiovascular Disease
DX: I48.0 Paroxysmal atrial fibrillation (principal); D47.2 Monoclonal gammopathy; I65.29 Occlusion and stenosis of unspecified carotid artery; Z79.01 Long term (current) use of anticoagulants; Z88.8 Allergy status to other drugs, medicaments and biological substances; Z80.1 Family history of malignant neoplasm of trachea, bronchus and lung; Z83.3 Family history of diabetes mellitus
CPT/HCPCS: 33285; C1764

== ENCOUNTER 2021-05-07 10:00 | Outpatient (RCR) | payer BC ==
[2021-04-21 09:11] LABS: BASOPHILS % (AUTO) 0 % (0-10); EOSINOPHILS # (AUTO) 0.1 10^3/uL (0.0-0.3); EOSINOPHILS % (AUTO) 1 % (0-10); HEMATOCRIT 40 % (40-54); LYMPHOCYTES % (AUTO) 20 % (12-44); MEAN CORPUSCULAR HEMOGLOBIN 30 pg (25-34); MEAN CORPUSCULAR HGB CONC 32 g/dL (32-36); MEAN CORPUSCULAR VOLUME 94 fL (80-99); MEAN PLATELET VOLUME 11.5 fL (9.0-12.2); MONOCYTES # (AUTO) 0.6 10^3/uL (0.0-1.0); MONOCYTES % (AUTO) 12 % (0-12); NEUTROPHILS # (AUTO) 3.3 10^3/uL (1.8-7.8); NEUTROPHILS % (AUTO) 67 % (42-75); PLATELET COUNT 221 10^3/uL (130-400); WHITE BLOOD COUNT 4.9 10^3/uL (4.3-11.0)
[2021-04-21 09:33] LABS: ALANINE AMINOTRANSFERASE 17 U/L (0-55); ALKALINE PHOSPHATASE 42 U/L (40-136); BILIRUBIN,TOTAL 0.4 MG/DL (0.1-1.0); BUN/CREATININE RATIO 14; CALCIUM 9.3 MG/DL (8.5-10.1); CARBON DIOXIDE 29 MMOL/L (21-32); CHLORIDE 103 MMOL/L (98-107); CREATININE SERUM 1.03 MG/DL (0.60-1.30); GFR ESTIMATED > 60; GLUCOSE 99 MG/DL (70-105); POTASSIUM 4.8 MMOL/L (3.6-5.0); SODIUM 138 MMOL/L (135-145); TOTAL PROTEIN 6.9 GM/DL (6.4-8.2)
[~2021-05-07 10:00] MED LIST changes: -LIDOCAINE 1% INJ 20 ML 20 ML VIAL INJ ONE; -LIDOCAINE 1% INJ 20 ML 20 ML VIAL ONE
[2021-07-08] MEDS ORDERED: CHOL-34 PO (12:22)
== END 2021-07-20 | disposition home or self-care (01) ==
LOC: ONC 10:00
PROVIDERS: ATTEND Internal Medicine Hematology & Oncology
DX: D47.2 Monoclonal gammopathy (principal); I48.0 Paroxysmal atrial fibrillation; Z79.899 Other long term (current) drug therapy
CPT/HCPCS: 80053; 82784; 83615; 83883; 84155; 84165; 85025; 99213

== ENCOUNTER → 2021-07-06 | Outpatient (CLI) | payer BC ==
[~2021-07-06] MED LIST changes: +CHOL-34 PO
--- NOTE | 2021-07-06 15:57 | Diagnostic Imaging Report ---
INDICATION: History of kidney stones. COMPARISON: CT dated 02/01/2012. FINDINGS: Single supine radiographic view of the abdomen was obtained. Small bowel loops are nondistended. There is large amount of air and stool scattered throughout the colon. This does obscure evaluation for renal or ureteral collecting system calculi. There does appear to be punctate extraosseous calcification projecting over the superior pole of the right kidney. Area in question measures approximately 2 mm. No unexpected radiopaque foreign bodies are seen. Osseous structures show no gross acute abnormalities. IMPRESSION: 1. Moderate colonic air and stool. Please correlate for constipation. 2. Exam is partially obscured by the amount of colonic air and stool, but there does appear to be potential small 2 mm right renal calculus. Dictated by: Dictated on workstation # [id number]
== END ==
LOC: RAD 15:40
PROVIDERS: ATTEND Urology
DX: Z87.442 Personal history of urinary calculi (principal)
CPT/HCPCS: 74018

== ENCOUNTER 2021-07-13 05:38 | Outpatient (RCR) | payer BC, MEDICARE ==
[2021-07-08 09:44] VITALS: BP 104/69
[2021-07-08 10:16] LABS: BASOPHILS % (AUTO) 0 % (0-10); EOSINOPHILS # (AUTO) 0.1 10^3/uL (0.0-0.3); EOSINOPHILS % (AUTO) 1 % (0-10); HEMATOCRIT 39 % (40-54); HEMOGLOBIN 12.7 g/dL (13.3-17.7); LYMPHOCYTES # (AUTO) 1.1 10^3/uL (1.0-4.0); LYMPHOCYTES % (AUTO) 20 % (12-44); MEAN CORPUSCULAR HEMOGLOBIN 30 pg (25-34); MEAN CORPUSCULAR HGB CONC 33 g/dL (32-36); MEAN CORPUSCULAR VOLUME 94 fL (80-99); MEAN PLATELET VOLUME 11.4 fL (9.0-12.2); MONOCYTES # (AUTO) 0.6 10^3/uL (0.0-1.0); MONOCYTES % (AUTO) 12 % (0-12); NEUTROPHILS # (AUTO) 3.5 10^3/uL (1.8-7.8); NEUTROPHILS % (AUTO) 67 % (42-75); PLATELET COUNT 213 10^3/uL (130-400); WHITE BLOOD COUNT 5.3 10^3/uL (4.3-11.0)
[2021-07-08 10:18] LABS: BILIRUBIN,URINE NEGATIVE (NEGATIVE); CLARITY,URINE CLEAR; COLOR,URINE YELLOW; GLUCOSE, URINE (UA) NEGATIVE (NEGATIVE); KETONES,URINE NEGATIVE (NEGATIVE); LEUKOCYTE ESTERASE ,URINE NEGATIVE (NEGATIVE); NITRITE,URINE NEGATIVE (NEGATIVE); PH,URINE 6.5 (5-9); PROTEIN,URINE NEGATIVE (NEGATIVE)
[2021-07-08 10:28] LABS: BACTERIA,URINE NEGATIVE /HPF
--- NOTE | 2021-07-08 10:32 | Diagnostic Imaging Report ---
INDICATION: Preop for knee arthroplasty. COMPARISON: None. FINDINGS: Frontal and lateral views of the chest demonstrate a loop recorder on the left; otherwise, the lungs are clear. The heart is normal. There is no pneumothorax or effusion. The osseous structures are normal. IMPRESSION: Negative chest. Dictated by: Dictated on workstation # [id number]
[2021-07-08 10:33] LABS: BILIRUBIN,TOTAL 0.5 MG/DL (0.1-1.0); CALCIUM 9.7 MG/DL (8.5-10.1); CREATININE SERUM 0.91 MG/DL (0.60-1.30); POTASSIUM 4.3 MMOL/L (3.6-5.0)
[2021-07-08 10:37] LABS: ERYTHROCYTE SEDIMENTATION RATE 18 MM/HR (0-30)
[~2021-07-13] VITALS: Ht 177.8 cm; Wt 70.5 kg
== END 2021-07-13 08:39 | disposition home or self-care (01) ==
LOC: PREOP 05:38
PROVIDERS: ATTEND Orthopaedic Surgery
DX: Z01.818 Encounter for other preprocedural examination (principal); M17.11 Unilateral primary osteoarthritis, right knee; R53.83 Other fatigue; Z11.2 Encounter for screening for other bacterial diseases; Z20.822 Contact with and (suspected) exposure to COVID-19
CPT/HCPCS: 36415; 71046; 80053; 81000; 85025; 85610; 85652; 86850; 86900; 86901; 87081; 87635; 93005

== ENCOUNTER 2021-07-15 06:00 | Inpatient (IN) | payer BC, MEDICARE ==
--- NOTE | 2021-07-09 06:01 | HISTORY AND PHYSICAL ---
DATE OF SERVICE: INPATIENT HISTORY AND PHYSICAL DATE OF ADMISSION: 07/15/2021. This will be for inpatient admission on 07/15/2021 for right total knee arthroplasty. The patient will require regular inpatient admission due to pain management, need for physical therapy and comorbidities. HISTORY OF PRESENT ILLNESS: The patient is a 76-year-old gentleman with longstanding progressive right knee pain. He previously underwent an open meniscectomy in 1969. He has had progressive worsening loss of function with associated swelling and pain in his knee. His radiographs reveal severe medial and patellofemoral arthrosis. Due to functional impairment and failure to improve with conservative measures, the patient elected to proceed with surgical intervention. REVIEW OF SYSTEMS: No chest pain, no shortness of breath, no dysuria. PAST MEDICAL HISTORY: Significant for atrial fibrillation, which is resolved with an ablation procedure, hyperlipidemia. PAST SURGICAL HISTORY: Right knee deviated septum, double herniorrhaphy, bilateral and coronary ablation. SOCIAL HISTORY: The patient does not use tobacco. He drinks alcohol socially. FAMILY HISTORY: Significant for ischemic heart disease and Parkinson's disease. PRIMARY CARE PROVIDER: Dr. Monroy. MEDICATIONS: Crestor, finasteride and aspirin. ALLERGIES: MIDAZOLAM. PHYSICAL EXAMINATION: GENERAL: The patient is well-developed, well-nourished, in no acute distress. HEENT: Normocephalic, atraumatic. Pupils are equal, round and reactive to light. Oropharynx is clear. NECK: Supple, with no lymphadenopathy. LUNGS: Clear to auscultation bilaterally. HEART: Regular rate and rhythm. ABDOMEN: Soft, nontender, nondistended. EXTREMITIES: Right knee demonstrates a moderate effusion. He is tender along his medial joint line. His range of motion 0/2/130. There is no varus valgus laxity. Trace anterior drawer, negative posterior drawer. IMPRESSION: Severe right knee osteoarthritis, unresponsive to conservative measures. PLAN: Right total knee arthroplasty. The risks, benefits, options, ramifications and recovery were discussed at length with the patient. He understands and wishes to proceed. Job ID: [id number] DocumentID: [id number] Dictated Date: 06/29/2021 15:42:35 Gas Blender Date: 06/29/2021 16:18:03 Dictated By: HOWIE CONN MD
[~2021-07-15] VITALS: Ht 177.8 cm; Wt 71.0 kg
[2021-07-15] VITALS (12 sets, daily range): BP systolic 115–144; BP diastolic 55–75
[2021-07-15] MEDS ORDERED: CEFUROXIME INJECTION 1,500 MG in WATER (STERILE) FOR INJECTION 15 ML IV ONE (06:15)
[2021-07-15] MEDS: LACTATED RINGERS 1,000 ML IV PRN ×2 (06:28→07:38)
[2021-07-15] MEDS ORDERED: proPOfol 200 MG/20 ML (DIPRIVAN) VIAL IV ONE (06:37)
[2021-07-15] MEDS ORDERED: fentaNYL INJ 100 MCG/2 ML AMP ONE ×3 (06:37→09:43)
[2021-07-15] MEDS ORDERED: LIDOCAINE PF 2% 5 ML (XYLOCAINE) VIAL ONE (06:37)
[2021-07-15] MEDS ORDERED: TRANEXAMIC ACID 100 MG/ML 10 ML INJECTION ONE (06:37)
[2021-07-15] MEDS ORDERED: MIDAZOLAM 2 MG/2 ML (VERSED) VIAL ONE (06:38)
[2021-07-15] MEDS ORDERED: BUPIVACAINE 0.5% 30 ML (SENSORCAINE) VIAL ONE (07:07)
[2021-07-15] MEDS ORDERED: NALOXONE 0.4 MG/ML 1 ML (NARCAN) VIAL IV PRN (07:30)
[2021-07-15] MEDS ORDERED: morphine PCA 100 MG/100 ML BAG IV PRN (07:30)
[2021-07-15] MEDS ORDERED: diphenhydrAMINE 50 MG/ML INJ (BENADRYL) IVP PRN (07:30)
[2021-07-15] MEDS ORDERED: ONDANSETRON 4 MG/2 ML (SDV) Z0FRAN IVP PRN ×2 (07:30→09:45)
--- NOTE | 2021-07-15 07:35 | Progress Note-Pre Operative ---
Pre-Operative Progress Note H&P Reviewed The H&P was reviewed, patient examined and no changes noted. Date Seen by Provider: Jul 15, 2021 Time Seen by Provider: 07:20 Date H&P Reviewed: Jul 15, 2021 Time H&P Reviewed: 07:11 Pre-Operative Diagnosis: right knee osteoarthritis HOWIE CONN MD Jul 15, 2021 07:35
--- NOTE | 2021-07-15 07:36 | Progress Note-Post Operative ---
Post-Operative Progess Note Surgeon (s)/Physician Interventional Cardiologist (s) Surgeon HOWIE CONN MD Physician Interventional Cardiologist: [place] Viveros Pre-Operative Diagnosis right knee primary osteoarthritis Post-Operative Diagnosis right knee primary osteoarthritis Procedure & Operative Findings Date of Procedure 07/15/21 Procedure Performed/Findings right total knee arthroplasty Anesthesia Type GETA Estimated Blood Loss Estimated blood loss (mL): minimal Specimens/Packing Specimens Removed none Packing: none HOWIE CONN MD Jul 15, 2021 07:36
--- NOTE | 2021-07-15 07:38 | D/C HH Face to Face Order ---
D/C Face to Face Orders Reconcile Patient Problems Problems Reviewed?: Yes Instructions for Patient Via [employer], Patient Instructions/FollowUp: three weeks Physician to follow Patient: three weeks Discharge Diet for Home: Regular Diet Patient Data-Allergies,Ht & Wt Patient Allergies: Coded Allergies: midazolam (Verified Allergy, Intermediate, SEDATED FOR 48HRS/LOW B/P, 07/15/21) Height (Feet): 5 Height (Inches): 10.00 Weight (Pounds): 151 Weight (Ounces): 0.0 Home Health Need/Face to Face Date of Face to Face: Jul 15, 2021 Clinical Findings: Muscle weakness, Pain with ambulation, Unsteady gait I have seen Pt [id number]: Yes Discharged To: Home Diagnosis/Conditions: right total knee arthroplasty Patient is Homebound due to: Cassi fall risk due to instabilty, Muscle weakness, Pain w/ambulation Homebound Status Due to the above stated illness, injury or surgical procedure (medical condition or diagnosis) and associated clinical findings, the patient is homebound because of his/her inability to leave home except with aid of a supportive device and/or person AND leaving the home requires a considerable and taxing effort or is medically contraindicated. Pt req the following assistanc: [facility] Nursing Orders Home Health Services Order: Physical Therapy-Evaluate & Treat DC right knee pilar and apply steri strips 07/29/21 Home Health Infusion Therapy Line Start Date: Jul 15, 2021 Therapy Orders Therapy Orders: Physical Therapy, PT to assess for OT Therapy Specific Orders: Eval assistive deivces, Teach enviro modificati ons/safety, Gait training, Increase strength/endurance, Provider maintenance therapy, Restore ROM Certify Stmt I certify that this patient is under my care and that I, a nurse practitioner or a physician; a pathologist assistant working with me, had a face to face encounter that - meets the physician face to face encounter requirements with this patient as dated. HOWIE CONN MD Jul 15, 2021 07:38
[2021-07-15] MEDS ORDERED: INTRA-ARTICULAR IU ONE ×5 (07:45)
[2021-07-15] MEDS ORDERED: ONDANSETRON 4 MG/2 ML (SDV) Z0FRAN ONE (08:46)
[2021-07-15] MEDS ORDERED: SEVOFLURANE (ULTANE) 15 ML INHAL SOLN ONE (09:20)
[2021-07-15] MEDS ORDERED: MEPERIDINE (DEMEROL) INJ 50 MG/ML ONE (09:35)
[2021-07-15] MEDS ORDERED: MEPERIDINE (DEMEROL) INJ 50 MG/ML IVP ONE (09:45)
[2021-07-15] MEDS ORDERED: fentaNYL INJ 100 MCG/2 ML AMP IVP ONE (09:45)
--- NOTE | 2021-07-15 09:57 | Diagnostic Imaging Report ---
INDICATION: Right knee surgery. TIME OF EXAM: 9:37 AM Two views of the right knee demonstrate postoperative changes of total knee arthroplasty. Prosthetic elements are in good position. No fracture or loosening is seen. There are overlying skin pilar. IMPRESSION: Satisfactory postoperative appearance to the right knee. Dictated by: Dictated on workstation # [id number]
[2021-07-15] MEDS ORDERED: NS IV 1000 ML 1,000 ML ONE (11:07)
[2021-07-15] MEDS ORDERED: morphine PCA 100 MG/100 ML BAG IV ONE (11:08)
[2021-07-15] MEDS: NS IV 1000 ML 1,000 ML IV SCH ×3 (11:17→23:30)
[2021-07-15] MEDS ORDERED: CATHETER FLUSH 10 ML SYR IV PRN (11:30)
[2021-07-15] MEDS: SENNA W/DOCUSATE (SENOKOT S) TABLET PO SCH ×2 (11:46→21:00)
--- NOTE | 2021-07-15 14:03 | OPERATIVE REPORT ---
DATE OF SERVICE: 07/15/2021 GPREOPERATIVE DIAGNOSIS: Right knee primary osteoarthritis. POSTOPERATIVE DIAGNOSIS: Right knee primary osteoarthritis. PROCEDURE: Right total knee arthroplasty. SURGEON: Tim Conn MD BOXING INSTRUCTOR: [place] Viveros, who assisted throughout the procedure and closed the incision. ANESTHESIA: General endotracheal by Claudia Buchanan CRNA. TOURNIQUET TIME: Approximately 75 minutes at 300 mmHg. ESTIMATED BLOOD LOSS: Minimal. DRAINS: None. COMPLICATIONS: None. POSTOPERATIVE PLAN: Routine protocol. The patient was transferred to the recovery room, awake and stable condition. MATERIALS: Microport cemented size 6 femur, cemented size 6 tibia with 10 mm insert and a 35 cemented patellar button. STATEMENT OF MEDICAL NECESSITY: The patient is a 76-year-old gentleman who had longstanding progressive right knee pain. Radiographs revealed severe medial and patellofemoral arthrosis. He had undergone treatment with injections, rest, activity modifications and physical therapy without relief. Due to functional impairment and failure to improve with conservative measures, the patient elected to proceed with surgical intervention. DESCRIPTION OF PROCEDURE: After risks and benefits of procedure were discussed and questions were answered, an informed consent was signed and placed on the chart. The operative site was confirmed in the preoperative holding area and the patient was transferred to the operating room. After adequate levels of general endotracheal anesthetic were obtained, a timeout was called, confirming the operative site. The right lower extremity was prepped and draped in the usual sterile fashion with the leg elevated and the knee flexed, tourniquet was inflated to 300 mmHg. Standard anterior approach was utilized. Hemostasis was obtained with cautery. Medial parapatellar arthrotomy was performed leaving 1 cm cuff on the patella for later reattachment. A portion of the fat pad was resected. A subperiosteal release was carefully performed on the proximal medial tibia being careful to stay on the bony surface. The ACL was absent. The intramedullary guide was passed into the femur. The distal cutting block was placed. Distal cut was made in the femur was sized to a size 6. The 6 cutting block was placed parallel to the epicondylar axis and cuts were made from posterior to anterior. The intramedullary guide was then passed into the tibia. The cutting block was placed. The drop deyanira transected the intermalleolar axis and the cut was made. The 6 baseplate was positioned and the drop deyanira again transected the intermalleolar axis. This was then prepared with the drill and keel punch. The femoral trial was placed and trochlear cut was made and the 10 mm trial was placed. The patella was then prepared by using the freehand technique and resecting 10 mm off the undersurface. PEG guide was placed, and peg holes were drilled at 35 trial button was placed. The knee was taken through range of motion. Full extension was easily obtained, 120 degrees of flexion was easily obtained. There was no anterior/posterior or medial/lateral laxity in flexion or extension. The patella tracked well. The trials were removed. The joint was irrigated with pulse lavage. Bone ends were irrigated and dried. The periarticular block was placed in the posterior capsule, medial and lateral retinaculum extensor mechanism, subcutaneous tissues. The bone ends were then further irrigated and dried, and the tibial baseplate was cemented into position. Excessive cement was removed, the superior surface was irrigated and dried and the polyethylene insert was placed. Distal femur was irrigated and dried and the femoral prosthesis was cemented into position. Excessive cement was removed. The knee was brought out into full extension until the cement had cured. The undersurface of patella was irrigated and dried. The patellar button was cemented into position. Excessive cement was removed. Once the cement had cured, the knee was taken through range of motion. Full extension was easily obtained 120 degrees of flexion with gravity was easily obtained. There was no anterior/posterior or medial/lateral laxity in flexion or extension. The joint was further irrigated. The arthrotomy was closed with #2 Tevdek in jkhqmy-an-blzpr interrupted fashion. Knee was flexed. The repair was stable, and the patella tracked well. Subcutaneous tissues were irrigated and dried using a total of 6 liters throughout the procedure. A 0 Vicryl was used for deep subcutaneous layer, 2-0 Vicryl for the superficial subcutaneous layer, pilar used on the skin. A soft dressing was applied. Tourniquet was deflated. The patient was transferred to the recovery room awake and in stable condition. Job ID: [id number] DocumentID: [id number] Dictated Date: 07/15/2021 09:36:08 Automotive Painter Helper Date: 07/15/2021 14:03:27 Dictated By: TIM CONN MD
--- NOTE | 2021-07-15 14:37 | Physical Therapy Evaluation ---
PT Evaluation-General Medical Diagnosis Admission Date Jul 15, 2021 at 06:00 Medical Diagnosis: Right TKA Onset Date: Jul 15, 2021 Therapy Diagnosis Therapy Diagnosis: Gait Deficit, strength deficit Height/Weight Height (Feet): 5 Height (Inches): 10.00 Weight (Pounds): 151 Weight (Ounces): 0.0 Precautions Precautions/Isolations: Fall Prevention Weight Bear Status Right Lower Extremity: Right Weight Bearing/Tolerated Referral Physician: Dr. Garza Reason for Referral: Evaluation/Treatment Social History Home: [facility] Current Living Status: Significant Other Entry Into Home: Stairs Without Railing PT Steps Into Home: 1 PT Steps Inside Home: 18 Prior Prior Level of Function SCALE: Activities may be completed with or without assistive devices. 0-Cvwvrlkcio-azgvwlq completes the activity by him/herself with no assistance from a helper. 5-Set-up or Clean-up Assistance-helper sets up or cleans up; patient completes activity. [place] assists only prior to or following the activity. 4-Supervision or Touching Assistance-helper provides verbal cues and/or touching/steadying and/or contact guard assistance as patient completes activity. Assistance may be provided throughout the activity or intermittently. 3-Partial/Moderate Assistance-helper does LESS THAN HALF the effort. [place] lifts, holds or supports trunk or limbs, but provides less than half the effort. 2-Substantial/Maximal Assistance-helper does MORE THAN HALF the effort. [place] lifts or holds trunk or limbs and provides more than half the effort. 1-Vyzlmyrlk-ircezy does ALL the effort. Patient does none of the effort to complete the activity. Or, the assistance of 2 or more helpers is required for the patient to complete the activity. If activity was not attempted, code reason: 7-Patient Refused. 9-Not Applicable-not attempted and the patient did not perform the activity before the current illness, exacerbation or injury. 10-Not Attempted due to Environmental Limitations-(lack of equipment, weather restraints, etc.). 88-Not Attempted due to Medical Conditions or Safety Concerns. Bed Mobility: 6 Transfers (B,C,W/C): 6 Gait: 6 Stairs: 6 Wheelchair Mobility: 9 Indoor Mobility (Ambulation): Independent Stairs: Independent Prior Devices Use: None PT Evaluation-Current Subjective Patient lying supine in bed upon PT arrival with in the room, agreeable to treatment. Patient currently rates pain at 3/10 and notes that when the CPM moves "It actually feels good." Objective Patient Orientation: Person, Place, Time, Situation Attachments: IV ROM/Strength ROM Lower Extremities Right knee extension AROM 10 degrees from neutral Right knee flexion AROM 90 degrees Strength Lower Extremities Right knee flexion and extension 3-/5 via visual observation. Sensory Sensation Right Lower Extremit: Intact Sensation Left Lower Extremity: Intact Transfers Roll Left to Right (QC): 4 Sit to Lying (QC): 4 Lying to Sitting/Side of Bed(Q: 4 Sit to Stand (QC): 4 Chair/Rat-ua-Xdgaw Xfer(QC): 4 Gait Does the Patient Walk?: Yes Mode of Locomotion: Walk Anticipated Mode of Locomotion: Walk Walk 10 feet (QC): 4 Walk 50 ft with 2 Turns(QC): 88 Distance: 15 ft Gait Assistive Device: FWW Wheelchair Training Does the Pt Use a Wheelchair?: No Balance Sitting Static: Good Sitting Dynamic: Good Standing Static: Fair Standing Dynamic: Fair Assessment/Needs Patient tolerated treatment well. Patient demonstrates knee ROM from 10 degrees from neutral in extension to 90 degrees flexion. Patient was fit with CPM and settings at 0-90 degrees with instructions to be on 2 hours, off 2 hours. Demonstrates SBA for all observed bed mobility and transfers. he performs bila teral LE therapeutic exercise as listed above. Patient ambulates 15 feet with FWW with SBA and verbal cues for gait, safety, progression and posture. Patient in chair post treatment with all needs met, nursing notified, call light in hand, and in the room. Rehab Potential: Good PT Short Term Goals Short Term Goals Time Frame: Jul 18, 2021 Roll Left & Right: 5 Sit to lyin Lying to sitting on side of be: 5 Sit to stand: 5 Chair/rvt-bu-wtmme transfer: 5 Toilet transfer: 5 Car transfer: 5 Walk 10 feet: 5 Walk 50 feet with two turns: 5 Walk 150 feet: 5 Walking 10ft on uneven surface: 5 1 step (curb): 5 4 steps: 5 PT Orthodontist Goals Detention Goals PT Orthodontist Goals Time Frame: Jul 24, 2021 Roll Left & Right (QC): 6 Sit to Lying (QC): 6 Lying-Sitting on Side/Bed(QC): 6 Sit to Stand (QC): 6 Chair/Ukn-ey-Qgynl Xfer(QC): 6 Toilet Transfer (QC): 6 Car Transfer (QC): 6 Does the Patient Walk: Yes Walk 10 feet (QC): 6 Walk 50ft with 2 Turns (QC): 6 Walk 150 ft (QC): 6 Walking 10ft on Uneven Surface: 6 1 Step (curb) (QC): 6 4 Steps (QC): 6 12 Steps (QC): 6 PT Plan Problem List Problem List: Activity Tolerance, Functional Strength, Safety, Balance, Gait, Transfer, Bed Mobility, ROM Treatment/Plan Treatment Plan: Continue Plan of Care Treatment Plan: Bed Mobility, Education, Functional Activity Mechelle, Functional Strength, Gait, Safety, Therapeutic Exercise, Transfers Treatment Duration: Sep 09, 2021 Frequency: 11 times per week Estimated Hrs Per Day: .5 hour per day Patient and/or Family Agrees t: Yes Safety Risks/Education Patient Education: Gait Training, Transfer Techniques, Reviewed Precautions Teaching Recipient: Patient, Family Teaching Methods: Demonstration, Discussion Response to Teaching: Verbalize Understanding, Return Demonstration Time/GCodes Time In: 1320 Time Out: 1400 Total Billed Treatment Time: 40 Total Billed Treatment Visit, Sarai Arenas, Ex, CPM ADRIEN RODRIGUEZ PT Jul 15, 2021 14:37
[2021-07-15] MEDS: CEFUROXIME INJECTION 750 MG in WATER (STERILE) FOR INJECTION 10 ML IV SCH ×2 (15:26→23:47)
--- NOTE | 2021-07-15 19:33 | Progress Note - Hospitalist ---
Subjective HPI/CC On Admission Date Seen by Provider: Jul 15, 2021 Time Seen by Provider: 11:45 Subjective/Events-last exam Godfrey Fischer is a 76 year old male with PMH AFib s/p ablation, BPH, HLD, osteoarthritis, who came in for a scheduled right total knee arthroplasty with Dr. Garza. He underwent the procedure today without issue. He is now in his room and resting comfortably. He denies any pain but says he also hasn't really moved from bed yet. He has been in his normal state of health. He has no other complaints or concerns. Objective Exam Vital Signs Vital Signs Date Time Temp Pulse Resp B/P (MAP) Pulse Ox O2 Delivery O2 Flow Rate FiO2 07/15/21 18:00 22 07/15/21 16:00 37.0 81 116/72 (87) 97 Room Air 07/15/21 10:00 3 Capillary Refill : Less Than 3 Seconds General Appearance: No Apparent Distress, WD/WN Respiratory: Lungs Clear, Normal Breath Sounds, No Respiratory Distress Cardiovascular: Regular Rate, Rhythm, No Edema, No Murmur Gastrointestinal: Normal Bowel Sounds, Non Tender, Soft Extremity: Non Tender, No Pedal Edema Neurologic/Psychiatric: Alert, Oriented x3, No Motor/Sensory Deficits, Normal Mood/Affect Skin: Normal Color, Warm/Dry Results/Procedures Lab Patient resulted labs reviewed. Imaging: Reviewed Imaging Report Assessment/Plan Assessment and Plan Assess & Plan/Chief Complaint Osteoarthritis s/p total knee arthroplasty Kayla primary Pain regimen Bowel regimen Incentive spirometry PT/OT HLD Continue home meds AFib No medications, clinically significant, no acute management needs DVT prophylaxis: Lovenox Diagnosis/Problems Diagnosis/Problems (1) S/P total knee arthroplasty Status: Acute Qualifiers: Laterality: right Qualified Codes: Z96.651 - Presence of right artificial knee joint (2) Osteoarthritis of right knee Status: Chronic (3) Atrial fibrillation Status: Chronic (4) HLD (hyperlipidemia) Status: Chronic RAMESH BECKFORD MD Jul 15, 2021 19:33
[2021-07-15] MEDS: ROSUVASTATIN 5 MG (CRESTOR) TABLET PO SCH (21:00)
[2021-07-16 04:00] VITALS: BP 116/59
[2021-07-16] MEDS: MULTIVIT W/MINERALS TAB (THERAGRAN M) PO SCH (05:45)
[2021-07-16 06:36] LABS: HEMOGLOBIN 10.7 g/dL (13.3-17.7)
--- NOTE | 2021-07-16 07:19 | Anesthesia-General Post-Op ---
General Patient Condition Mental Status/LOC: Same as Preop Cardiovascular: Satisfactory Nausea/Vomiting: Absent Respiratory: Satisfactory Pain: Controlled Complications: Absent Post Op Complications Complications None Follow Up Care/Instructions Patient Instructions None needed. Anesthesia/Patient Condition Patient Condition Patient is doing well, no complaints, stable vital signs. Awake and sitting up with CPM machine, reports no discomfort and that lower extremity block has worked well. No apparent adverse anesthesia problems. No complications reported per nursing. LISA WEN MARINE CONSULTANT Jul 16, 2021 07:19
[2021-07-16 07:46] VITALS: BP 115/54
[2021-07-16] MEDS: SENNA W/DOCUSATE (SENOKOT S) TABLET PO SCH ×2 (07:55→19:40)
[2021-07-16] MEDS: ENOXAPARIN 30 MG/0.3 ML (LOVENOX) SYR SC SCH ×2 (07:55→19:40)
[2021-07-16] MEDS: oxyCODONE/APAP 5/325MG (PERCOCET 5) TABLET PO PRN ×6 (07:55→21:34)
[2021-07-16] MEDS: ASPIRIN E.C. 81 MG (ECOTRIN) TAB PO SCH ×2 (07:55→09:34)
--- NOTE | 2021-07-16 08:02 | Progress Note ---
Standard Progress Note Progress Notes/Assess & Plan Date Seen by a Provider: Jul 16, 2021 Time Seen by a Provider: 08:01 Progress/Assessment & Plan no complaints Vital Signs Date Time Temp Pulse Resp B/P (MAP) Pulse Ox O2 Delivery O2 Flow Rate FiO2 07/16/21 07:46 36.7 75 16 115/54 (74) 95 Room Air 07/16/21 05:55 16 07/16/21 04:00 36.7 73 16 116/59 (78) 97 Room Air 07/15/21 23:06 36.8 79 18 115/55 (75) 96 Room Air 07/15/21 20:55 Room Air 07/15/21 20:00 37.1 78 20 117/64 (81) 96 Room Air 07/15/21 18:00 22 07/15/21 16:00 37.0 81 22 116/72 (87) 97 Room Air 07/15/21 15:53 18 07/15/21 11:12 36.1 83 18 123/58 (79) 95 Room Air 07/15/21 10:30 Room Air 07/15/21 10:30 Room Air 07/15/21 10:30 37.0 20 132/64 (86) 96 Room Air 07/15/21 10:20 20 134/68 (90) 96 Room Air 07/15/21 10:15 Room Air 07/15/21 10:10 20 124/61 (82) 96 Room Air 07/15/21 10:00 OxyMask 3 07/15/21 10:00 20 128/63 (84) 95 OxyMask 3 07/15/21 09:50 20 133/60 (84) 98 OxyMask 3 07/15/21 09:45 OxyMask 6 07/15/21 09:40 16 135/57 (83) 100 OxyMask 6 07/15/21 09:31 OxyMask 6 07/15/21 09:31 37.0 16 120/65 (83) 100 OxyMask 6 I & O 07/16/21 07:00 Intake Total 4475 ml Output Total 1975 ml Balance 2500 ml Laboratory Tests Test 07/16/21 05:50 Range/Units Hemoglobin 10.7 L 13.3-17.7 g/dL Hematocrit 34 L 40-54 % RLE--dressing intact. no calf tenderness. Neg Beverly's NVI s/p RTKA doing well PT/OT HOWIE CONN MD Jul 16, 2021 08:02
--- NOTE | 2021-07-16 09:49 | Physical Therapy Daily Note ---
PT Daily Note-Current Subjective Patient agrees to PT. Pain Numeric Pain Scale: 3 Location: Right Location Body Site: Knee Pain Description: Acute Mental Status Patient Orientation: Normal For Age Attachments: Polar Pack, IV Transfers SCALE: Activities may be completed with or without assistive devices. 8-Yjwvyjhrzu-lagdycx completes the activity by him/herself with no assistance from a helper. 5-Set-up or Clean-up Assistance-helper sets up or cleans up; patient completes activity. [place] assists only prior to or following the activity. 4-Supervision or Touching Assistance-helper provides verbal cues and/or touching/steadying and/or contact guard assistance as patient completes activity. Assistance may be provided throughout the activity or intermittently. 3-Partial/Moderate Assistance-helper does LESS THAN HALF the effort. [place] lifts, holds or supports trunk or limbs, but provides less than half the effort. 2-Substantial/Maximal Assistance-helper does MORE THAN HALF the effort. [place] lifts or holds trunk or limbs and provides more than half the effort. 3-Dolaqinrf-gnpjps does ALL the effort. Patient does none of the effort to c omplete the activity. Or, the assistance of 2 or more helpers is required for the patient to complete the activity. If activity was not attempted, code reason: 7-Patient Refused. 9-Not Applicable-not attempted and the patient did not perform the activity before the current illness, exacerbation or injury. 10-Not Attempted due to Environmental Limitations-(lack of equipment, weather restraints, etc.). 88-Not Attempted due to Medical Conditions or Safety Concerns. Lying to Sitting/Side of Bed(Q: 6 Sit to Stand (QC): 4 Chair/Wac-lm-Kbktk Xfer(QC): 4 Weight Bearing Right Lower Extremity: Right Weight Bearing/Tolerated Gait Training Does the Patient Walk?: Yes Distance: 250' Walk 10 feet (QC): 4 Walk 50 ft with 2 Turns(QC): 4 Walk 150 ft (QC): 4 Gait Assistive Device: FWW slow, antalgic, functional gait sequence Exercises Supine Ex: Ankle pumps, Quad Set, Heel Slides, Straight leg raise Supine Reps: 15 Seated Therapy Exercises: Long arc quads Seated Reps: 15 Assessment right knee AROM 0-88 degrees. Increase activity. Plan dismissal in a.m. PT Short Term Goals Short Term Goals Time Frame: Jul 18, 2021 Roll Left & Right: 5 Sit to lyin Lying to sitting on side of be: 5 Sit to stand: 5 Chair/nxd-sr-nkisn transfer: 5 Toilet transfer: 5 Car transfer: 5 Walk 10 feet: 5 Walk 50 feet with two turns: 5 Walk 150 feet: 5 Walking 10ft on uneven surface: 5 1 step (curb): 5 4 steps: 5 PT Care Home Goals Petroleum Engineering Professor Goals PT Petroleum Engineering Professor Goals Time Frame: Jul 24, 2021 Roll Left & Right (QC): 6 Sit to Lying (QC): 6 Lying-Sitting on Side/Bed(QC): 6 Sit to Stand (QC): 6 Chair/Zqs-yo-Nmysn Xfer(QC): 6 Toilet Transfer (QC): 6 Car Transfer (QC): 6 Does the Patient Walk: Yes Walk 10 feet (QC): 6 Walk 50ft with 2 Turns (QC): 6 Walk 150 ft (QC): 6 Walking 10ft on Uneven Surface: 6 1 Step (curb) (QC): 6 4 Steps (QC): 6 12 Steps (QC): 6 PT Plan Treatment/Plan Treatment Plan: Continue Plan of Care Treatment Plan: Bed Mobility, Education, Functional Activity Mechelle, Functional Strength, Gait, Safety, Therapeutic Exercise, Transfers Treatment Duration: Sep 09, 2021 Frequency: 11 times per week Estimated Hrs Per Day: .5 hour per day Patient and/or Family Agrees t: Yes Time/GCodes Time In: 745 Time Out: 810 Total Billed Treatment Time: 25 Total Billed Treatment 1 visit GT 11 min EX 14 min EWELINA LOWE PT Jul 16, 2021 09:49
--- NOTE | 2021-07-16 11:06 | Occupational Therapy Eval ---
OT Evaluation-General/PLF Medical Diagnosis Admission Date Jul 15, 2021 at 06:00 Medical Diagnosis: Right TKA Onset Date: Jul 15, 2021 Therapy Diagnosis Therapy Diagnosis: decreased ADL status Height/Weight Height (Feet): 5 Height (Inches): 10.00 Weight (Pounds): 151 Weight (Ounces): 0.0 Precautions Precautions/Isolations: Standard Precautions Referral Physician: Dr. Garza Referral Reason: Evaluation/Treatment Medical History Additional Medical History atrial fibrillation, hyperlipidemia,Right knee deviated septum, double herniorrhaphy Current History s/p R TKA 07/16/21 Social History Home: [facility] Current Living Status: Significant Other Entry Into Home: Stairs Without Railing Steps Into Home: 1 Steps Inside Home: 18 ADL-Prior Level of Function SCALE: Activities may be completed with or without assistive devices. 1-Itlteqzwhh-svrvrpc completes the activity by him/herself with no assistance from a helper. 5-Set-up or Clean-up Assistance-helper sets up or cleans up; patient completes activity. [place] assists only prior to or following the activity. 4-Supervision or Touching Assistance-helper provides verbal cues and/or touching/steadying and/or contact guard assistance as patient completes activity. Assistance may be provided throughout the activity or intermittently. 3-Partial/Moderate Assistance-helper does LESS THAN HALF the effort. [place] lifts, holds or supports trunk or limbs, but provides less than half the effort. 2-Substantial/Maximal Assistance-helper does MORE THAN HALF the effort. [place] lifts or holds trunk or limbs and provides more than half the effort. 8-Fxkfdtdjw-dpvmzk does ALL the effort. Patient does none of the effort to complete the activity. Or, the assistance of 2 or more helpers is required for the patient to complete the activity. If activity was not attempted, code reason: 7-Patient Refused. 9-Not Applicable-not attempted and the patient did not perform the activity before the current illness, exacerbation or injury. 10-Not Attempted due to Environmental Limitations-(lack of equipment, weather restraints, etc.). 88-Not Attempted due to Medical Conditions or Safety Concerns. ADL PLOF Comments IND with ADLs and functional mobility, no AD/AE Self Care: Independent Functional Cognition: Independent DME/Equipment: Bath Chair, Shower Occupation: Cjs OT Current Status Subjective Pt seated in recliner, rates 0/10 pain. Mental Status/Objective Patient Orientation: Person, Place, Time, Situation Attachments: IV Current Upper Extremity ROM WFL Upper Extremity Coordination WFL Upper Extremity Sensation WFL Upper Extremity Strength WFL ADL-Treatment Eating (QC): 6 (Per pt report) Oral Hygiene (QC): 5 (set up assist) Toileting Hygiene (QC): 7 Other Treatments Pt seated upright in recliner, agreeable to OT evaluation and tx. OT educated pt on purpose and benefit of OT, he verbalized understanding. Pt provided information about home set up and PLOF. Pt indicates he has a walk in shower, asked about shower chair vs built in bench as he has both available. Pt ind icates he has supplies to cover dressing for showers, and does not have further concerns with ADLs at this time. OT educated pt on energy conservation and activity modification techniques for when he returns home. Pt declined need to toilet or ADLs at this time. Post tx, pt up in recliner, call light in reach and all needs met. Education OT Patient Education: Correct positioning, Energy conservation, Modified ADL techniques, Progress toward Goal/Update tx plan, Purpose of tx/functional activities, Rehab process, Safety issues, Transfer techniques Teaching Recipient: Patient Teaching Methods: Discussion Response to Teaching: Verbalize Understanding OT Camp Counselor Goals Skilled Nursing Goals Time Frame: Jul 24, 2021 Eating (QC): 6 Oral Hygiene (QC): 6 Toileting Hygiene (QC): 6 Shower/Bathe Self (QC): 5 Upper Body Dressing (QC): 5 Lower Body Dressing (QC): 4 On/Off Footwear (QC): 4 Additional Goals: 1-Demonstrate ADL Tasks, 2-Verbalize Understanding, 3-Im proveStrength/Mechelle 1=Demonstrate adherence to instructed precautions during ADL tasks. 2=Patient will verbalize/demonstrate understanding of assistive devices/modifications for ADL. 3=Patient will improve strength/tolerance for activity to enable patient to perform ADL's. OT Education/Plan Problem List/Assessment Assessment: Decreased Activ Tolerance, Decreased UE Strength, Impaired I ADL's Pt would benefit from skilled OT services in order to address any concerns he may have with ADLs upon discharging. Discharge Recommendations Plan/Recommendations: Continue POC Treatment Plan/Plan of Care Patient would benefit from OT for education, treatment and training to promote independence in ADL's, mobility, safety and/or upper extremity function for ADL's. Plan of Care: ADL Retraining, Functional Mobility, UE Funct Exercise/Act Treatment Duration: Jul 24, 2021 Frequency: 5 times per week Estimated Hrs Per Day: .25 hour per day Rehab Potential: Good Time/GCodes Start Time: 10:42 Stop Time: 10:56 Total Time Billed (hr/min): 14 Billed Treatment Time 1, FLORIDALMA LONG OT Jul 16, 2021 11:05
[2021-07-16] MEDS: NS IV 1000 ML 1,000 ML IV SCH (11:53)
[2021-07-16 11:54] VITALS: BP 122/58
--- NOTE | 2021-07-16 14:12 | Physical Therapy Daily Note ---
PT Daily Note-Current Subjective Patient agrees to PT. Spouse present Pain Numeric Pain Scale: 3 Location: Right Location Body Site: Knee Pain Description: Acute Mental Status Patient Orientation: Normal For Age Attachments: IV Transfers SCALE: Activities may be completed with or without assistive devices. 6-Gxioyviooz-dxgdvfk completes the activity by him/herself with no assistance from a helper. 5-Set-up or Clean-up Assistance-helper sets up or cleans up; patient completes activity. [place] assists only prior to or following the activity. 4-Supervision or Touching Assistance-helper provides verbal cues and/or touching/steadying and/or contact guard assistance as patient completes activity. Assistance may be provided throughout the activity or intermittently. 3-Partial/Moderate Assistance-helper does LESS THAN HALF the effort. Re[place] lifts, holds or supports trunk or limbs, but provides less than half the effort. 2-Substantial/Maximal Assistance-helper does MORE THAN HALF the effort. Re[place] lifts or holds trunk or limbs and provides more than half the effort. 4-Fhahydzsv-dhjmkb does ALL the effort. Patient does none of the effort to complete the activity. Or, the assistance of 2 or more helpers is required for the patient to complete the activity. If activity was not attempted, code reason: 7-Patient Refused. 9-Not Applicable-not attempted and the patient did not perform the activity before the current illness, exacerbation or injury. 10-Not Attempted due to Environmental Limitations-(lack of equipment, weather restraints, etc.). 88-Not Attempted due to Medical Conditions or Safety Concerns. Sit to Lying (QC): 6 Lying to Sitting/Side of Bed(Q: 6 Sit to Stand (QC): 6 Weight Bearing Right Lower Extremity: Right Weight Bearing/Tolerated Gait Training Does the Patient Walk?: Yes Distance: 350' Walk 10 feet (QC): 4 Walk 50 ft with 2 Turns(QC): 4 Walk 150 ft (QC): 4 Gait Assistive Device: FWW VC's for gait sequence/heel-toe Exercises Supine Ex: Ankle pumps, Quad Set, Heel Slides, Straight leg raise Supine Reps: 15 Seated Therapy Exercises: Long arc quads Seated Reps: 15 Assessment Patient is actively flexing right knee past 90 degrees. Plan dismissal in a.m. PT Short Term Goals Short Term Goals Time Frame: Jul 18, 2021 Roll Left & Right: 5 Sit to lyin Lying to sitting on side of be: 5 Sit to stand: 5 Chair/wqr-ez-erbuk transfer: 5 Toilet transfer: 5 Car transfer: 5 Walk 10 feet: 5 Walk 50 feet with two turns: 5 Walk 150 feet: 5 Walking 10ft on uneven surface: 5 1 step (curb): 5 4 steps: 5 PT [employer] Goals [facility] Goals PT [employer] Goals Time Frame: Jul 24, 2021 Roll Left & Right (QC): 6 Sit to Lying (QC): 6 Lying-Sitting on Side/Bed(QC): 6 Sit to Stand (QC): 6 Chair/Iuf-tf-Chssp Xfer(QC): 6 Toilet Transfer (QC): 6 Car Transfer (QC): 6 Does the Patient Walk: Yes Walk 10 feet (QC): 6 Walk 50ft with 2 Turns (QC): 6 Walk 150 ft (QC): 6 Walking 10ft on Uneven Surface: 6 1 Step (curb) (QC): 6 4 Steps (QC): 6 12 Steps (QC): 6 PT Plan Treatment/Plan Treatment Plan: Continue Plan of Care Treatment Plan: Bed Mobility, Education, Functional Activity Mechelle, Functional Strength, Gait, Safety, Therapeutic Exercise, Transfers Treatment Duration: Sep 09, 2021 Frequency: 11 times per week Estimated Hrs Per Day: .5 hour per day Patient and/or Family Agrees t: Yes Time/GCodes Time In: 1300 Time Out: 1334 Total Billed Treatment Time: 34 Total Billed Treatment 1 visit EX 19 min GT 15 min EWELINA LOWE PT Jul 16, 2021 14:12
[2021-07-16 16:00] VITALS: BP 144/77
[2021-07-16] MEDS: ROSUVASTATIN 5 MG (CRESTOR) TABLET PO SCH (19:40)
[2021-07-16 19:56] VITALS: BP 145/79
[2021-07-16 23:30] VITALS: BP 139/64
--- NOTE | 2021-07-16 23:51 | DISCHARGE SUMMARY ---
DATE OF SERVICE: Date of discharge would be 07/17/2021. DIAGNOSES: 1. Right knee primary osteoarthritis. 2. Atrial fibrillation. 3. Hyperlipidemia. PROCEDURE: Right total knee arthroplasty. SUMMARY: The patient is a 76-year-old gentleman who underwent a right total knee arthroplasty on the day of admission. Postoperatively, he did well. At the time of discharge, his wound was clean and dry. He was tolerating his diet and tolerating pain with oral pain medication. CONDITION AT DISCHARGE: Good. DISCHARGE DIET: Regular. FOLLOWUP: Followup is in three weeks. Home physical therapy will be arranged. DISCHARGE MEDICATIONS: Home medications with Percocet as needed for pain and one aspirin per day for 30 days. ACTIVITIES: Weightbearing as tolerated with a walker. Job ID: [id number] DocumentID: [id number] Dictated Date: 07/16/2021 08:04:05 Dedenter Date: 07/16/2021 23:50:31 Dictated By: HOWIE CONN MD
[2021-07-17] MEDS: NS IV 1000 ML 1,000 ML IV SCH (00:35)
[2021-07-17] MEDS: oxyCODONE/APAP 5/325MG (PERCOCET 5) TABLET PO PRN ×4 (00:37→08:32)
[2021-07-17 05:12] LABS: HEMOGLOBIN 10.9 g/dL (13.3-17.7)
[2021-07-17] MEDS: MULTIVIT W/MINERALS TAB (THERAGRAN M) PO SCH (06:00)
[2021-07-17 08:00] VITALS: BP 129/64
--- NOTE | 2021-07-17 08:05 | Progress Note ---
Standard Progress Note Progress Notes/Assess & Plan Date Seen by a Provider: Jul 17, 2021 Time Seen by a Provider: 08:04 Progress/Assessment & Plan no complaints Vital Signs Date Time Temp Pulse Resp B/P (MAP) Pulse Ox O2 Delivery O2 Flow Rate FiO2 07/16/21 07:46 36.7 75 16 115/54 (74) 95 Room Air 07/16/21 05:55 16 07/16/21 04:00 36.7 73 16 116/59 (78) 97 Room Air 07/15/21 23:06 36.8 79 18 115/55 (75) 96 Room Air 07/15/21 20:55 Room Air 07/15/21 20:00 37.1 78 20 117/64 (81) 96 Room Air 07/15/21 18:00 22 07/15/21 16:00 37.0 81 22 116/72 (87) 97 Room Air 07/15/21 15:53 18 07/15/21 11:12 36.1 83 18 123/58 (79) 95 Room Air 07/15/21 10:30 Room Air 07/15/21 10:30 Room Air 07/15/21 10:30 37.0 20 132/64 (86) 96 Room Air 07/15/21 10:20 20 134/68 (90) 96 Room Air 07/15/21 10:15 Room Air 07/15/21 10:10 20 124/61 (82) 96 Room Air 07/15/21 10:00 OxyMask 3 07/15/21 10:00 20 128/63 (84) 95 OxyMask 3 07/15/21 09:50 20 133/60 (84) 98 OxyMask 3 07/15/21 09:45 OxyMask 6 07/15/21 09:40 16 135/57 (83) 100 OxyMask 6 07/15/21 09:31 OxyMask 6 07/15/21 09:31 37.0 16 120/65 (83) 100 OxyMask 6 I & O 07/16/21 07:00 Intake Total 4475 ml Output Total 1975 ml Balance 2500 ml Laboratory Tests Test 07/16/21 05:50 Range/Units Hemoglobin 10.7 L 13.3-17.7 g/dL Hematocrit 34 L 40-54 % RLE--dressing intact. no calf tenderness. Neg Beverly's NVI s/p RTKA doing well PT/OT Final Diagnosis no complaints ambulating well Vital Signs Date Time Temp Pulse Resp B/P (MAP) Pulse Ox O2 Delivery O2 Flow Rate FiO2 07/17/21 06:22 18 07/17/21 03:53 37.3 90 18 94 Room Air 07/16/21 23:30 37.0 81 18 139/64 (89) 97 Room Air 07/16/21 19:56 37.3 91 18 145/79 (101) 97 Room Air 07/16/21 19:40 Room Air 07/16/21 18:00 18 07/16/21 16:00 37.1 86 18 144/77 (99) 97 Room Air 07/16/21 11:54 36.8 79 16 122/58 (79) 95 Room Air I & O0 07/17/21 07:00 Intake Total 2910 ml Output Total 2850 ml Balance 60 ml Laboratory Tests Test 07/17/21 04:20 Range/Units Hemoglobin 10.9 L 13.3-17.7 g/dL Hematocrit 35 L 40-54 % RLE--incision clean and dry. No calf tenderness. Neg Beverly's s/p RTKA doing very well l DC home HOWIE CONN MD Jul 17, 2021 08:05
[2021-07-17] MEDS ORDERED: morphine INJ 4 MG/ML 1 ML (VIAL/SYRINGE) IVP PRN (08:15)
[2021-07-17] MEDS: SENNA W/DOCUSATE (SENOKOT S) TABLET PO SCH (08:31)
[2021-07-17] MEDS: ENOXAPARIN 30 MG/0.3 ML (LOVENOX) SYR SC SCH (08:32)
[2021-07-17] MEDS: ASPIRIN E.C. 81 MG (ECOTRIN) TAB PO SCH (08:32)
--- NOTE | 2021-07-17 09:59 | Physical Therapy Daily Note ---
PT Daily Note-Current Subjective Patient has increase c/o right knee patient but did not rate. Pain medication was issued per RN. Mental Status Patient Orientation: Normal For Age Transfers SCALE: Activities may be completed with or without assistive devices. 1-Gltsmvijnq-elkniev completes the activity by him/herself with no assistance from a helper. 5-Set-up or Clean-up Assistance-helper sets up or cleans up; patient completes activity. [place] assists only prior to or following the activity. 4-Supervision or Touching Assistance-helper provides verbal cues and/or touching/steadying and/or contact guard assistance as patient completes activity. Assistance may be provided throughout the activity or intermittently. 3-Partial/Moderate Assistance-helper does LESS THAN HALF the effort. [place] lifts, holds or supports trunk or limbs, but provides less than half the effort. 2-Substantial/Maximal Assistance-helper does MORE THAN HALF the effort. [place] lifts or holds trunk or limbs and provides more than half the effort. 9-Tjstjjtvg-lmjszj does ALL the effort. Patient does none of the effort to complete the activity. Or, the assistance of 2 or more helpers is required for the patient to complete the activity. If activity was not attempted, code reason: 7-Patient Refused. 9-Not Applicable-not attempted and the patient did not perform the activity before the current illness, exacerbation or injury. 10-Not Attempted due to Environmental Limitations-(lack of equipment, weather restraints, etc.). 88-Not Attempted due to Medical Conditions or Safety Concerns. Lying to Sitting/Side of Bed(Q: 6 Sit to Stand (QC): 6 Chair/Eif-td-Jwkzm Xfer(QC): 6 Weight Bearing Right Lower Extremity: Right Weight Bearing/Tolerated Gait Training Does the Patient Walk?: Yes Distance: 150' x 1;200' x 1 Walk 10 feet (QC): 6 Walk 50 ft with 2 Turns(QC): 6 Walk 150 ft (QC): 6 Gait Assistive Device: FWW slow, steady, antalgic Stair Training Stair Training: Handrails/: 1 handrail, uses walker #of Steps: 4 1 Step (curb) (QC): 6 4 Steps (QC): 6 Exercises Supine Ex: Ankle pumps, Quad Set, Heel Slides, Straight leg raise Supine Reps: 15 Seated Therapy Exercises: Long arc quads Seated Reps: 15 Assessment Current Status: Excellent Progress Patient improved with treatment plan and will dismiss to home with spouse on this date. Patient instructed to perform exercises on HEP issued by physician. PT Short Term Goals Short Term Goals Time Frame: Jul 18, 2021 Roll Left & Right: 5 Sit to lyin Lying to sitting on side of be: 5 Sit to stand: 5 Chair/gja-nj-sapdn transfer: 5 Toilet transfer: 5 Car transfer: 5 Walk 10 feet: 5 Walk 50 feet with two turns: 5 Walk 150 feet: 5 Walking 10ft on uneven surface: 5 1 step (curb): 5 4 steps: 5 PT Longterm Goals Manager Mechanical Maintenance Goals PT Longterm Goals Time Frame: Jul 24, 2021 Roll Left & Right (QC): 6 Sit to Lying (QC): 6 Lying-Sitting on Side/Bed(QC): 6 Sit to Stand (QC): 6 Chair/Eam-gf-Gngbs Xfer(QC): 6 Toilet Transfer (QC): 6 Car Transfer (QC): 6 Does the Patient Walk: Yes Walk 10 feet (QC): 6 Walk 50ft with 2 Turns (QC): 6 Walk 150 ft (QC): 6 Walking 10ft on Uneven Surface: 6 1 Step (curb) (QC): 6 4 Steps (QC): 6 12 Steps (QC): 6 PT Plan Treatment/Plan Treatment Plan: Discontinue PT Treatment Plan: Bed Mobility, Education, Functional Activity Mechelle, Functional Strength, Gait, Safety, Therapeutic Exercise, Transfers Treatment Duration: Sep 09, 2021 Frequency: 11 times per week Estimated Hrs Per Day: .5 hour per day Patient and/or Family Agrees t: Yes Time/GCodes Time In: 725 Time Out: 800 Total Billed Treatment Time: 35 Total Billed Treatment 1 visit EX 15 min FA 20 min EWELINA LOWE PT Jul 17, 2021 09:59
[2021-07-17 10:15] VITALS: BP 129/64
== END 2021-07-17 10:15 | disposition home health service (06) | DRG 470 ==
LOC: 4TH 06:00 → SURG 06:01 → 4TH 10:58
PROVIDERS: ADMIT Orthopaedic Surgery; ATTEND Orthopaedic Surgery
PROC: 0SRC0J9 Replacement of Right Knee Joint with Synthetic Substitute, Cemented, Open Approach (ICD-10-PCS; principal; 2021-07-15 07:38)
DX: M17.11 Unilateral primary osteoarthritis, right knee (principal); I48.20 Chronic atrial fibrillation, unspecified; E78.5 Hyperlipidemia, unspecified; N40.0 Benign prostatic hyperplasia without lower urinary tract symptoms
CPT/HCPCS: 36415; 73560; 85014; 85018; 86850; 86900; 86901; 94664

== ENCOUNTER → 2021-08-13 | Outpatient (CLI) | payer BC, MEDICARE ==
[~2021-08-13] VITALS: Ht 177.8 cm; Wt 68.1 kg
[~2021-08-13] MED LIST changes: +ACETAMINOPHEN 500 MG TAB (TYLENOL) PO PRN; +CASIRIVIMAB/IMDEVIMAB 1,200 MG in NS (IVPB) 250 ML IV ONE; +EPINEPHrine INJECTION 1 MG/ML AMP IM PRN; +ONDANSETRON 4 MG/2 ML (SDV) Z0FRAN IV PRN; +diphenhydrAMINE 50 MG/ML INJ (BENADRYL) IV PRN
[2021-08-13 09:42] VITALS: BP 138/76
[2021-08-13 11:06] VITALS: BP 140/74
== END ==
LOC: INFUSION 09:32
PROVIDERS: ATTEND Physician Assistant
DX: U07.1 COVID-19 (principal)

== ENCOUNTER → 2021-10-23 | Outpatient (CLI) | payer BC ==
[~2021-10-23] MED LIST changes: -ACETAMINOPHEN 500 MG TAB (TYLENOL) PO PRN; -AMIO200T6 PO; +AMIO200T65 PO; -CASIRIVIMAB/IMDEVIMAB 1,200 MG in NS (IVPB) 250 ML IV ONE; -EPINEPHrine INJECTION 1 MG/ML AMP IM PRN; -ONDANSETRON 4 MG/2 ML (SDV) Z0FRAN IV PRN; -diphenhydrAMINE 50 MG/ML INJ (BENADRYL) IV PRN
--- NOTE | 2021-10-23 11:08 | Diagnostic Imaging Report ---
PROCEDURE: US right lower extremity venous. TECHNIQUE: Multiple real-time grayscale images were obtained over the right lower extremity in various projections. Additional spectral analysis and color Doppler duplex images were also obtained. INDICATION: Right lower extremity swelling, status post knee replacement. FINDINGS: There is no evidence of right lower extremity DVT. Right lower extremity deep venous system shows normal compressibility with normal response to augmentation and Valsalva. No fluid collection or mass is detected. IMPRESSION: No evidence of right lower extremity DVT. Dictated by: Dictated on workstation # [id number]
== END ==
LOC: RAD 10:05
PROVIDERS: ATTEND Internal Medicine
DX: M79.89 Other specified soft tissue disorders (principal); Z96.651 Presence of right artificial knee joint

== ENCOUNTER → 2021-10-28 | Outpatient (CLI) | payer BC ==
[~2021-10-28] VITALS: Ht 177 cm; Wt 70.0 kg
[~2021-10-28] MED LIST changes: +CATHETER FLUSH 10 ML SYR IV PRN
[2021-10-28 11:25] LABS: ALBUMIN 4.2 GM/DL (3.2-4.5); BILIRUBIN,TOTAL 0.5 MG/DL (0.1-1.0); CALCIUM 9.4 MG/DL (8.5-10.1); CREATININE SERUM 0.86 MG/DL (0.60-1.30); MAGNESIUM 2.1 MG/DL (1.6-2.4); POTASSIUM 3.6 MMOL/L (3.6-5.0); TOTAL PROTEIN 7.3 GM/DL (6.4-8.2)
[2021-10-28 13:30] VITALS: BP 149/88
--- NOTE | 2021-10-28 15:30 | Cardiology Stress Test Report ---
Stress Test Report Date of Procedure/Referring: Date of Procedure: Oct 28, 2021 Argelia Buckley Admitting Physician Zay Monroy MD Indications: HTN Baseline Heart Rate: 76 Baseline Blood Pressure: Blood Pressure Systolic: 149 Blood Pressure Diastolic: 88 Vital Signs Date Time Temp Pulse Resp B/P (MAP) Pulse Ox O2 Delivery O2 Flow Rate FiO2 10/28/21 13:30 75 149/88 (108) Baseline Vital Signs Vital Signs Date Time Temp Pulse Resp B/P (MAP) Pulse Ox O2 Delivery O2 Flow Rate FiO2 10/28/21 13:30 75 149/88 (108) Baseline EKG: Baseline EK Summary: After explaining the procedure and details to the patient, he signed the consent and was brought to the stress nuclear laboratory. Patient exercised on standard Moy protocol, EKG, heart rate and blood pressure were monitored continuously, resting and stress doses of radio tracer were injected, imaging was acquired and reviewed in the short axis, horizontal long a xis and vertical long axis views Patient was able to exercise for a total of 6 minutes on Moy protocol, METs 7.3 Maximum heart rate 132 Maximum blood pressure 189/77 Stress EKG, Minimal nondiagnostic changes Recovery EKG, Return to baseline TID: 0.93 SSS: 3 SDS: 3 EF: 57 Conclusion: 1. Fair exercise tolerance for a total of 6 minutes on standard Moy protocol, 7.3 METS achieving 91% of maximal expected heart rate 2. Appropriate heart rate and blood pressure response to exercise return to baseline during recovery 3. Nondiagnostic EKG changes with exercise return to baseline during recovery 4. No significant ischemia or infarction on SPECT images 5. Normal left ventricular size, EF 57% JASON FERRELL MD Oct 28, 2021 15:30
== END ==
LOC: CARD 11:00
PROVIDERS: ATTEND Physician Assistant
DX: I08.0 Rheumatic disorders of both mitral and aortic valves (principal); I10 Essential (primary) hypertension; I25.10 Atherosclerotic heart disease of native coronary artery without angina pectoris; E78.2 Mixed hyperlipidemia
CPT/HCPCS: 78452; 80053; 80061; 83735; 93017; 93306; A9502; 36415

== ENCOUNTER → 2023-05-04 | Outpatient (CLI) | payer BC ==
[~2023-05-04] VITALS: Ht 177.8 cm; Wt 72.4 kg
[~2023-05-04] MED LIST changes: -CATHETER FLUSH 10 ML SYR IV PRN; +MTP25TSR PO; +ROSU10TA28 PO
== END | disposition home or self-care (01) ==
LOC: PREOP 05:39
PROVIDERS: ATTEND Internal Medicine
DX: Z01.818 Encounter for other preprocedural examination (principal)

== ENCOUNTER 2023-05-13 08:28 | Day surgery (SDC) | payer BC ==
[~2023-05-13] VITALS: Ht 177 cm; Wt 72.4 kg
[2023-05-13] MEDS ORDERED: LACTATED RINGERS 1,000 ML IV STA (08:33)
[2023-05-13] MEDS ORDERED: HURRICAINE EXT TUBE (BENZOCAINE) XX PRN (08:45)
[2023-05-13 08:50] VITALS: BP 145/87
--- NOTE | 2023-05-13 08:54 | Pre-Op Note & Conscious Sedat ---
Pre-Operative Progress Note Date H&P Reviewed: May 13, 2023 Time H&P Reviewed: 08:54 History & Physical: H&P Reviewed, Patient Examed, No changes noted Pre-Op Diagnosis: dysphagia Moderate Sedation PreProcedure ASA Score 2 Airway Lungs Heart ASA score ASA 1: a normal healthy patient ASA 2: a patient with a mild systemic disease (mid diabetes, controlled hypertension, obesity ASA 3: a patient with a severe systemic disease that limits activity (angina, COPD, prior Myocardial infarction) ASA 4: a patient with an incapacitating disease that is a constant threat to life (CHF, renal failure) ASA 5: a moribund patient not expected to survive 24 hrs. (ruptured aneurysm) ASA 6: a declared brain- patient whose organs are being harvested. For emergent operations, add the letter E after the classification Mallampati Classification Grade 1 Sedation Plan Analgesia, Amnesia, Plan communicated to team members, Discussed options with patient/fam, Discussed risks with patient/fam The patient is an appropriate candidate to undergo the planned procedure, sedation, and anesthesia. The patient immediately re-assessed prior to indication. NGHIA VARGAS MD May 13, 2023 08:54
[2023-05-13] MEDS ORDERED: PROPOFOL INJECTION 50 ML IV ONE (09:15)
--- NOTE | 2023-05-13 09:39 | Progress Note-Post Operative ---
Post-Procedure Note Physician (s)/Manager Filter (s) Physician NGHIA VARGAS MD Pre-Procedure Diagnosis Pre-Procedure Diagnosis: dysphagia Post-Procedure Diagnosis Post-operative diagnosis: The patient was placed in the left lateral decubitus position. The endoscope was inserted into the oral cavity and under direct visualization the esophagus was intubated. The endoscope was passed down the esophagus through the stomach into the second portion of the duodenum. A careful inspection was made as the endoscope was withdrawn. Findings the posterior pharynx epiglottis arytenoid aperture and true and false vocal folds were unremarkable to gross inspection. The proximal mid and distal esophagus were unremarkable save for small sliding hiatal hernia and 1 small erosion noted at the Z-line biopsies were obtained and submitted for histopathology. We also took a biopsy from the midesophagus to evaluate for eosinophilic esophagitis. The cardia fundus antrum pylorus pyloric channel duodenal bulb and second portion and of the duodenum were unremarkable. A/P 1. Small sliding hiatal hernia was present without evidence for erosive esophagitis. No evidence for Zenker's diverticulum was noted. Biopsies are pending to rule out eosinophilic esophagitis. NGHIA VARGAS MD May 13, 2023 09:39
[2023-05-13 09:41] VITALS: BP 116/67
[2023-05-13 09:45] VITALS: BP 122/72
[2023-05-13 10:18] VITALS: BP 122/72
== END 2023-05-13 10:25 | disposition home or self-care (01) ==
LOC: ENDO 08:28
PROVIDERS: ATTEND Internal Medicine
DX: K21.00 Gastro-esophageal reflux disease with esophagitis, without bleeding (principal); K44.9 Diaphragmatic hernia without obstruction or gangrene